=== PATIENT | male | born 1945 | race Caucasian/White ===

== ENCOUNTER → 2018-09-30 | Outpatient (CLI) | payer MEDICARE ==
[2018-09-30 12:44] LABS: Basophils % (A) 0 %; Eosinophils # (A) 0.1 k/uL (0-0.7); Eosinophils % (A) 1 %; HCT 48.2 % (39.0-53.0); HGB 15.6 gm/dL (13.0-17.5); Lymphocytes # (A) 1.3 k/uL (1.0-4.8); Lymphocytes % (A) 17 %; MCHC 32.3 g/dL (31.0-37.0); MCV 92.9 fL (80.0-100.0); Mean Platelet Volume 6.5; Monocytes # (A) 0.4 k/uL (0-1.0); Monocytes % (A) 5 %; Neutrophils # (A) 5.7 k/uL (1.3-7.7); Neutrophils % (A) 75 %; Platelet Count 278 k/uL (150-450); RBC 5.19 m/uL (4.30-5.90); RDW 12.8 % (11.5-15.5); WBC 7.6 k/uL (3.8-10.6)
[2018-09-30 12:53] LABS: Albumin 4.4 g/dL (3.5-5.0); Calcium 9.8 mg/dL (8.4-10.2); Potassium 4.4 mmol/L (3.5-5.1); Total Bilirubin 1.7 mg/dL (0.2-1.3); Total Protein 7.3 g/dL (6.3-8.2)
[2018-09-30 12:57] LABS: INR 1.1 (<1.2); Prothrombin Time 10.4 sec (9.0-12.0)
--- NOTE | 2018-09-30 15:05 | XR ---
EXAMINATION TYPE: XR chest 2V DATE OF EXAM: 09/30/2018 COMPARISON: None HISTORY: Atrioventricular block TECHNIQUE: Frontal and lateral views of the chest are obtained. FINDINGS: There is no focal air space opacity, pleural effusion, or pneumothorax seen. The cardiac silhouette size is within normal limits. 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 Arthropathy noted within the right shoulder. The osseous structures are intact. IMPRESSION: No acute cardiopulmonary process.
== END ==
LOC: RADXRMAIN 11:55
PROVIDERS: ATTEND Internal Medicine Cardiovascular Disease
DX: I44.2 Atrioventricular block, complete (principal); Z51.81 Encounter for therapeutic drug level monitoring; Z79.01 Long term (current) use of anticoagulants
CPT/HCPCS: 36415; 71046; 80053; 85025; 85610

== ENCOUNTER 2018-10-01 06:18 | Day surgery (SDC) | payer MEDICARE ==
[2018-09-30 13:51] VITALS: BMI 28.0
[~2018-10-01 06:18] MED LIST: ceFAZolin 1,000 MG in SODIUM CHLORIDE 0.9% IRRIGATIO 250 ML IRRIGATION ONE; ceFAZolin IN SWFI 2 GM/20 ML SYRINGE IVP ONE
[2018-10-01] MEDS: SODIUM CHLORIDE 0.9% 1,000 ML IV SCH ×2 (06:48→12:53)
[2018-10-01] MEDS ORDERED: LIDOCAINE 1% INJ 10MG/ML (20 ML MDV) ONE ×2 (07:46→07:47)
[2018-10-01] MEDS ORDERED: MIDAZOLAM 2 MG/2 ML VIAL ONE ×2 (07:49→08:26)
[2018-10-01] MEDS ORDERED: fentaNYL (PF) 50 MCG/ML 2 ML AMP ONE ×2 (07:49→08:59)
[2018-10-01] MEDS ORDERED: IOPAMIDOL-300 100ML BTL INJ ONE (07:58)
[2018-10-01] MEDS: fentaNYL (PF) 50 MCG/ML 2 ML AMP IVP ONE ×3 (08:00→09:02)
[2018-10-01] MEDS ORDERED: MIDAZOLAM 2 MG/2 ML VIAL IVP ONE ×2 (08:01→08:31)
[2018-10-01] MEDS ORDERED: ceFAZolin IN SWFI 2 GM/20 ML SYRINGE IVP ONE (08:02)
[2018-10-01] MEDS ORDERED: LIDOCAINE 2% INJ 20 MG/ML SQ ONE (08:02)
[2018-10-01] MEDS ORDERED: LIDOCAINE 1% INJ 10MG/ML (20 ML MDV) SQ ONE (08:31)
[2018-10-01] MEDS ORDERED: fentaNYL (PF) 50 MCG/ML 2 ML AMP IVP ONE (09:03)
[2018-10-01] MEDS ORDERED: BACLOFEN 10 MG TAB PO PRN (09:30)
[2018-10-01] MEDS ORDERED: traMADol 50 MG TAB PO PRN (09:30)
[2018-10-01] MEDS ORDERED: valACYclovir 500 MG TAB PO PRN (09:30)
[2018-10-01] MEDS ORDERED: amLODIPine 5 MG TAB PO STA (12:31)
[2018-10-01] MEDS: ceFAZolin IN SWFI 2 GM/20 ML SYRINGE IVP SCH ×2 (14:19→20:09)
[2018-10-01] MEDS: ACETAMINOPHEN TAB 325 MG TAB PO PRN (15:57)
[2018-10-01] MEDS ORDERED: LISINOPRIL 20 MG TAB PO STA (17:23)
--- NOTE | 2018-10-01 17:27 | P.PCN ---
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 He was found to have second-degree AV block with 2 to one conduction. He was brought in for permanent pacemaker implantation. Patient is advised to have temporary pacemaker before the insertion of the permanent pacemaker. Patient was prepped and draped in the usual fashion. Patient was given prophylactic antibiotics and IV sedation with 2 mg of Versed and 50 of fentanyl. The right groin is infiltrated with lidocaine. Right femoral vein was entered using Seldinger technique. A 6-Latvian sheath was left in place. A 5-Latvian balloontipped pacemaker wire was advancednear the cardiac apex and the right ventricle. Satisfactory threshold were obtained. Pacemaker was set at rate of 35 and output of 3. No immediate complications. Final impression: Successful implantation of temporary pacemaker without any complications.
--- NOTE | 2018-10-01 17:32 | P.PCN ---
Date of Procedure: 10/01/18 Preoperative Diagnosis: Second-degree AV block with 2 to one conduction, episodes of dizziness Postoperative Diagnosis: The same Procedure(s) Performed: Permanent pacemaker implantation, axillary venography Description of Procedure: HISTORY: This is a 72-year-old gentleman who was recently found to have evidence of second-degree heart block with 2 to 1 conduction and episodes of dizziness. Patient is advised to have permanent pacemaker implantation. Patient is going to have temporary pacemaker insertion before the procedure. CONSENT:I have discussed the risks, benefits and alternative therapies for the above-mentioned procedure and for both sedation/analgesia as well as necessary blood product administration, if indicated, as they pertain to this patient. The patient has indicated understanding and acceptance of the risks and procedures discussed. PROCEDURE: Patient was brought to the lab in a fasting state. Patient already had a temporary pacemaker insertion. Patient was prepped and draped in the usual fashion. Patient was given IV sedation with fentanyl and Versed. The skin below the left clavicle was infiltrated with lidocaine. An incision was made parallel to deltopectoral groove was deepened until the pectoral fascia was exposed. A pocket was created by blunt dissection and cautery. Axillary venography was performed to delineate the course of the axillary vein. 2 sticks were performed into extrathoracic portion of the axillary vein and 2 sheaths were advanced over the guidewires and left in subclavian vein. Conscious Sedation: Versed 3 mg Fentanyl 75 g Duration, 90 minutes LEADS: ATRIAL: This is manufactured by [email or web address]. Model number is 5076-52 and the serial number is [id number]. VENTRICULAR: This is manufactured by [employer]. Model number is 5076-58. Serial number is [id number] The ventricular lead is maneuvered l with help of a straight and curved stylets into the left ventricle apical region. Satisfactory position was obtained and threshold measurements were made. The atrial lead was then maneuvered into the right atrial appendage. And thresholds were obtained. THRESHOLDS: ATRIUM:. The minimum patient threshold was 0.8 at pulse width of 0.5. The impedance is 733 P-wave: 3.1 VENTRICLE:. The minimum patient threshold was 0.5 at pulse width of 0.4. Impedance is 95 R-wave:. 10.6. The leads and pulse generator remained in the pocket after it was washed with antibiotics. Pocket was closed in the usual fashion. The fascia was closed with 2-0 Prolene ,the subcutaneous tissue was closed with 3-0 Prolene and the skin was closed with 4-0 Prolene. PROGRAMMING: MODE: DDD RATE: 60 to 1 :30 OUTPUT: Atrium 3.5 V Ventricle: 3.5 V FINAL IMPRESSION: #1. Successful implantation of dual-chamber permanent pacemaker #2 axillary venography: COMPLICATIONS: None PLAN:. We will continue to monitor him on telemetry unit. Prophylactic antibiotics to be continued. Chest x-ray in the morning. If stable patient be discharged home tomorrow.
[2018-10-01 20:19] VITALS: RESP 18
[2018-10-02] MEDS: ceFAZolin IN SWFI 2 GM/20 ML SYRINGE IVP SCH ×2 (02:00→07:39)
[2018-10-02] MEDS: ACETAMINOPHEN TAB 325 MG TAB PO PRN ×2 (02:12→07:37)
--- NOTE | 2018-10-02 07:23 | XR ---
EXAMINATION TYPE: XR chest 2V DATE OF EXAM: 10/02/2018 HISTORY: Lead placement check. REFERENCE: Previous study dated 09/30/2018. FINDINGS: A bipolar pacemaker has been placed via a left subclavian approach. Approximately overlies the right atrium and distally overlies right ventricle. There is no evidence of pneumothorax. The lungs are clear. Pleural space are clear. The heart is not enlarged. IMPRESSION: SATISFACTORY PACEMAKER LEAD PLACEMENT.
[2018-10-02 08:12] VITALS: BP 173/80; PULSE 64; TEMP 97.5
[2018-10-02] MEDS ORDERED: CHOLECALCIFEROL 1,000 UNIT TAB PO SCH (09:00)
[2018-10-02] MEDS ORDERED: FINASTERIDE 5 MG TAB PO SCH (09:00)
[2018-10-02] MEDS ORDERED: LISINOPRIL 20 MG TAB PO SCH (09:00)
[2018-10-02] MEDS ORDERED: amLODIPine 5 MG TAB PO SCH (09:00)
[2018-10-02] MEDS ORDERED: ATORVASTATIN 10 MG TAB PO SCH (09:00)
[2018-10-02] MEDS: SODIUM CHLORIDE 0.9% 1,000 ML IV SCH (09:06)
[2018-10-02] MEDS ORDERED: CEPHALEXIN 500 MG CAP PO SCH (09:15)
--- NOTE | 2018-10-02 09:29 | P.PN ---
Subjective Progress Note Date: 10/02/18 Principal diagnosis: Status post pacemaker implantation Discharge note This is a 72-year-old gentleman who was recently evaluated by ECG because of symptoms of dizziness. He was found to have second-degree AV block with 2 to one conduction. He was brought to the hospital to have a pacemaker implanted. Prior to the permanent pacemaker implantation patient did have temporary pacemaker placed by Dr. Temple. Patient was seen and examined this morning, feels well, no dizziness or lightheadedness. Chest x-ray from this morning did not reveal any evidence of a pneumothorax. Device was interrogated and is functioning appropriately. Blood pressure this morning before medication administration 172/80 his pressure has been running in the 150 range, heart rate in the 60s, 96% on room air. Patient had been given an additional dose of Norvasc yesterday, we will increase his daily dose to 10 mg daily. No laboratory data today. Objective - Vital Signs Vital signs: Vital Signs Temp 97.5 F L 10/02/18 08:00 Pulse 64 10/02/18 08:00 Resp 18 10/02/18 08:00 BP 173/80 10/02/18 08:00 Pulse Ox 96 10/02/18 08:00 Intake & Output 10/01/18 10/02/18 10/02/18 18:59 06:59 18:59 Intake Total 200 Balance 200 Weight 101.605 kg Intake: IV 200 Other: Voiding Method Urinal Urinal # Voids 1 2 - Exam PHYSICAL EXAMINATION: GENERAL: 72-year-old gentleman in no acute distress at the time of my examination HEENT: Head is atraumatic, normocephalic. Pupils equal, round. Sclera anicteric. Conjunctiva are clear. Mucous membranes of the mouth are moist. Neck is supple. There is no elevated jugular venous pressure. No carotid bruit is heard. HEART EXAMINATION: Heart S1, S2 normal. No murmur or gallop heard. CHEST EXAMINATION: Lungs are clear to auscultation and precussion. No chest wall tenderness is noted on palpation or with deep breathing. Site of pacemaker implantation, dressing is dry and intact. ABDOMEN: Soft, nontender. Bowel sounds are heard. No organomegaly noted. EXTREMITIES: 2+ peripheral pulses with no evidence of peripheral edema and no calf tenderness noted. NEUROLOGIC patient is awake, alert and oriented 3 . . Assessment and Plan Plan: Assessment and plan #1 status post implantation of permanent pacemaker for high degree AV block. #2 hypertension #3 hyperlipidemia Plan Patient may be discharged home today, he will have a follow-up appointment with Dr. Temple in the device clinic in one week. We will increase his dose of Norvasc to 10 mg daily. Continue Lipitor, antibiotics for 3 days, Zestril. DNP note has been reviewed, I agree with a documented findings and plan of care. Patient was seen and examined.
--- NOTE | 2018-10-02 10:34 | P.DS ---
Providers Date of admission: 10/01/2018 Expected date of discharge: 10/02/18 Attending physician: Denise Temple Primary care physician: Stated None Hospital Course: This patient is brought in for elective permanent pacemaker implantation for high degree AV block. Please refer to the dictated progress note dictated by Aileen harvey. Patient's blood pressure still running high. I'm going to increase the dose of the amlodipine- Benazepril 520 milligrams twice daily. I will also ask him to resume metoprolol 25 mg by mouth twice a day. He will resume his aspirin. Rest of the medication and prophylactic antibiotics to be continued. Patient is given instructions not to lift, push, pull left arm for the next week. Avoid raising the left arm above the shoulder level. Patient will keep the dressing dry until seen in the office. Will report to was if he develops any fever, swelling or bleeding at the site. Follow-up in one week. Plan - Discharge Summary Discharge Rx Participant: No New Discharge Prescriptions: New Cephalexin [Keflex] 500 mg PO BID #6 cap Metoprolol Tartrate 25 mg PO BID 30 Days #90 tab Continue traMADol HCL [Ultram] 50 mg PO DAILY PRN PRN Reason: Pain valACYclovir [Valtrex] 500 mg PO DAILY PRN PRN Reason: Cold Sores Baclofen [Lioresal] 10 mg PO DAILY PRN PRN Reason: Pain Finasteride [Proscar] 5 mg PO Q48H Atorvastatin Calcium [Lipitor] 20 mg PO Q48H Atorvastatin Calcium [Lipitor] 10 mg PO Q48H amLODIPine BESYLATE/BENAZEPRIL [amLODIPine BESYLATE/BENAZEPRIL 5-20 mg] 1 cap PO DAILY Aspirin [Adult Low Dose Aspirin EC] 81 mg PO DAILY Cholecalciferol (Vitamin D3) [Vitamin D3] 2,000 unit PO DAILY Discharge Medication List Aspirin [Adult Low Dose Aspirin EC] 81 mg PO DAILY 09/30/18 [History] Atorvastatin Calcium [Lipitor] 10 mg PO Q48H 09/30/18 [History] Atorvastatin Calcium [Lipitor] 20 mg PO Q48H 09/30/18 [History] Baclofen [Lioresal] 10 mg PO DAILY PRN 09/30/18 [History] Cholecalciferol (Vitamin D3) [Vitamin D3] 2,000 unit PO DAILY 09/30/18 [History] Finasteride [Proscar] 5 mg PO Q48H 09/30/18 [History] amLODIPine BESYLATE/BENAZEPRIL [amLODIPine BESYLATE/BENAZEPRIL 5-20 mg] 1 cap PO DAILY 09/30/18 [History] traMADol HCL [Ultram] 50 mg PO DAILY PRN 09/30/18 [History] valACYclovir [Valtrex] 500 mg PO DAILY PRN 09/30/18 [History] Cephalexin [Keflex] 500 mg PO BID #6 cap 10/02/18 [Rx] Metoprolol Tartrate 25 mg PO BID 30 Days #90 tab 10/02/18 [Rx] Follow up Appointment(s)/Referral(s): Denise Temple MD [STAFF PHYSICIAN] - 1 Week (device check in office.) Patient Instructions/Handouts: Pacemaker (DC) Activity/Diet/Wound Care/Special Instructions: PATIENT EDUCATION MATERIAL Instructions following a heart rhythm device implant: 1. Keep dressing DRY for ONE week. You may cover the area with Saran or cling wrap, prior to shower. 2. the dressing will be removed after one week in the device clinic at [facility]. 3. avoid raising the left arm about the shoulder level (6 week restriction) 4. avoid arm movements, like backscratching, rubbing the head, or pulling on a cord. (6 week restriction) 5. gentle rang of motion movements of the shoulder, closest to the incision should be performed to avoid a frozen shoulder. (pendulum exercises of the shoulder) 6. the opposite arm may be used freely 7. avoid driving for 7 days 8. avoid activities such as golfing, swimming, weed whacknig, lifting more than 10 pounds weight, bowling, gymnastics and weight training/lifting (6 weeks restrictino) 9. activities such wood chopping with an axe, pull-ups in the gymnasium, power lifting, arc-welding, being close to home induction cooktops will always be a problem. In case of any problems, [phone] Attention: Device Clinic Follow-up in device clinic in 5 days Follow-up with Dr. Temple as scheduled. Increase blood pressure pill to twice a day Resume Metoprolol 25mg twice a day Discharge Disposition: HOME SELF-CARE
[2018-10-02] MEDS ORDERED: METOPROLOL TARTRATE 25 MG TAB PO SCH (10:45)
[2018-10-03] MEDS ORDERED: LISINOPRIL 10 MG TAB PO SCH (09:00)
[2018-10-03] MEDS ORDERED: ATORVASTATIN 20 MG TAB PO SCH (09:00)
== END 2018-10-02 11:39 | disposition home or self-care (01) ==
LOC: CATHEP 06:18 → 1SOBS 09:27 → CATHEP 10-02 11:39
PROVIDERS: ATTEND Internal Medicine Cardiovascular Disease
DX: I44.1 Atrioventricular block, second degree (principal); I44.7 Left bundle-branch block, unspecified; R00.1 Bradycardia, unspecified; I48.91 Unspecified atrial fibrillation; I10 Essential (primary) hypertension; E78.5 Hyperlipidemia, unspecified; E78.00 Pure hypercholesterolemia, unspecified; Z72.0 Tobacco use; Z82.49 Family history of ischemic heart disease and other diseases of the circulatory system; Z79.82 Long term (current) use of aspirin; Z79.899 Other long term (current) drug therapy
CPT/HCPCS: 33208; 33210; 75820; 71046; C1894; C1769 ×2; C1785; C1898; J2001 ×2; J2250; J3010; J0690 ×2; Q9967

== ENCOUNTER 2020-07-31 06:11 | Day surgery (SDC) | payer MEDICARE ==
[2020-07-25 09:44] VITALS: BMI 26.6
[~2020-07-31 06:11] MED LIST changes: +ALPRAZolam 0.25 MG TAB PO PRN; +ALPRAZolam 0.5 MG TAB PO PRN; +NITROGLYCERIN SL TABS 0.4 MG TAB SUBLINGUAL PRN; +SODIUM CHLORIDE 0.9% 1,000 ML in EMPTY BAG 1 BAG IV ONE; -ceFAZolin 1,000 MG in SODIUM CHLORIDE 0.9% IRRIGATIO 250 ML IRRIGATION ONE; -ceFAZolin IN SWFI 2 GM/20 ML SYRINGE IVP ONE
[2020-07-31] MEDS ORDERED: ASPIRIN 325 MG TAB PO ONE (07:00)
[2020-07-31] MEDS ORDERED: SODIUM CHLORIDE 0.9% 1,000 ML IV ONE (07:00)
[2020-07-31] MEDS ORDERED: ATORVASTATIN 80 MG TAB PO ONE (07:00)
[2020-07-31 07:16] VITALS: RESP 16; TEMP 7.8
[2020-07-31] MEDS ORDERED: fentaNYL (PF) 50 MCG/ML 2 ML AMP IVP ONE (07:51)
[2020-07-31] MEDS ORDERED: LIDOCAINE 1% INJ 10MG/ML (20 ML MDV) SQ ONE (07:51)
[2020-07-31] MEDS ORDERED: MIDAZOLAM 2 MG/2 ML VIAL IVP ONE (07:51)
[2020-07-31] MEDS ORDERED: VERAPAMIL SYRINGE (5 MG/10 ML) INTRAARTER ONE (07:54)
[2020-07-31] MEDS: HEPARIN SODIUM 1,000 UN/ML (10ML VL) IV ONE ×2 (07:55→08:19)
[2020-07-31] MEDS ORDERED: IOPAMIDOL-370 125ML BTL INJ ONE ×2 (08:05→08:32)
[2020-07-31] MEDS ORDERED: NITROGLYCERIN 1000MCG/10ML SYRINGE INTRACORON ONE (08:26)
--- NOTE | 2020-07-31 08:36 | P.CARDCATH ---
Date of Procedure: 07/31/20 Description of Procedure: HISTORY: This is a 74-year-old gentleman with history of hypertension and strong family history has been having episodes of nonsustained V. tach. Echocardiogram showed apical hypokinesia. Nuclear stress test also showed a fixed defect oat the apex. Patient is advised to have cardiac catheterization for definitive diagnosis CONSENT:I have discussed the risks, benefits and alternative therapies for the above-mentioned procedure and for both sedation/analgesia as well as necessary blood product administration, if indicated, as they pertain to this patient. The patient has indicated understanding and acceptance of the risks and procedures discussed. PROCEDURE: Patient was brought to the lab in a fasting state. Patient was given some IV sedation. The right wrist is infiltrated with lidocaine and right radial artery was entered using Seldinger technique. A 6-Occitan catheter was left in place and selective coronary arteriography was performed. Patient tolerated the procedure well. TR band was applied for hemostasis. No immediate complications were noted and patient was transferred to [facility] in a stable condition Conscious Sedation: Versed 1mg Fentanyl 50 g Duration 21minutes HEMODYNAMICS: Aortic pressure 120/64. Left ventricular end-diastolic pressure is 8-12. There was no gradient across the aortic valve SELECTIVE CORONARY ARTERIOGRAPHY: LEFT MAIN: Normal length and mild intimal plaque THE LEFT ANTERIOR DESCENDING CORONARY ARTERY: This is a good caliber vessel which is heavily calcified in the proximal and midportion. This appears to be about 50-60% lesion in the mid LAD at the origin of the diagonal branch. The diagonal branch itself has about 90% stenosis THE LEFT CIRCUMFLEX AND IS CORONARY ARTERY:, Moderate caliber vessel with mild disease THE RIGHT CORONARY ARTERY:, Moderate caliber vessel with diffuse mild disease especially in the midportion LEFT VENTRICULOGRAPHY: Not performed FINAL IMPRESSION:. Diffuse coronary disease and calcification of the coronary system. Moderate disease in the LAD with a critical lesion involving the diagonal branch. The right coronary artery has mild disease involving the mid portion PLAN: Administer maximum medical therapy. FFR of the mid LAD PROGNOSIS:. fair
[2020-07-31] MEDS ORDERED: SODIUM CHLORIDE 0.9% 1,000 ML IV SCH (08:45)
[2020-07-31] MEDS ORDERED: RX INFO: IV CONTRAST WAS GIVEN 1 EACH MISC MISCELLANE PRN (09:28)
[2020-07-31 13:14] VITALS: BP 154/71; PULSE 67
== END 2020-07-31 13:20 | disposition home or self-care (01) ==
LOC: CATHCVL 06:11
PROVIDERS: ATTEND Internal Medicine Cardiovascular Disease
DX: I25.10 Atherosclerotic heart disease of native coronary artery without angina pectoris (principal); R93.1 Abnormal findings on diagnostic imaging of heart and coronary circulation; R94.39 Abnormal result of other cardiovascular function study; I47.2 Ventricular tachycardia; I10 Essential (primary) hypertension; E78.00 Pure hypercholesterolemia, unspecified; I42.9 Cardiomyopathy, unspecified; I48.91 Unspecified atrial fibrillation; I45.4 Nonspecific intraventricular block; R00.1 Bradycardia, unspecified; Z95.0 Presence of cardiac pacemaker; Z72.0 Tobacco use; Z79.899 Other long term (current) drug therapy; Z79.82 Long term (current) use of aspirin; Z82.49 Family history of ischemic heart disease and other diseases of the circulatory system
CPT/HCPCS: 93458; C1887; C1769; C1894; J2250; J2001; J3010; J1644; Q9967

== ENCOUNTER → 2021-07-08 | Outpatient (CLI) | payer MEDICARE ==
--- NOTE | 2021-07-08 09:43 | CT ---
EXAMINATION TYPE: CT cervical spine wo con DATE OF EXAM: 07/08/2021 COMPARISON: None HISTORY: 75-year-old male M5 4.2, M4 7.812, R2 0.2, Cervicalgia TECHNIQUE: Contiguous axial scanning of the cervical spine without IV contrast. Coronal and sagittal reconstructions performed. CT DLP: 514.2 mGycm Automated exposure control for dose reduction was used. FINDINGS: Shock Absorber Installer image shows left anterior chest wall pacemaker generator and right ventricular leads. Partially visualized moderate to severe mucosal thickening within the bilateral maxillary sinuses. Moderate atherosclerotic calcifications of the bilateral carotid bifurcations. No craniocervical junction abnormality, predental space widening, or prevertebral soft tissue swellin g. Degenerative change at the C1 dens articulation. Moderate degenerative disc disease throughout with disc space narrowing. Hypertrophic facet and uncovertebral joint arthropathy throughout. Degenerative grade 1 retrolisthesis C3-C4, C5-C6, and C6/C7. Degenerative grade 1 anterolisthesis C7-T1 and T1-T2. Small disc osteophyte complex such as at C3-C4 mildly narrows the spinal canal. Assessment of the spi nal canal at C6/C7 and below is limited due to artifact from patient shoulders. At C2-C3, changes to moderate left neural foraminal stenosis. At C3-C4, moderate to severe bilateral neuroforaminal stenosis. At C4-C5, mild to moderate bilateral neuroforaminal stenosis. At C5-C6, moderate to severe left and mild right neuroforaminal stenosis. At C6/C7, severe right and mild to moderate left neuroforaminal stenosis. No acute fracture of the cervical spine. Some heterotopic ossification along the posterior midline co mpatible with sequela of remote injuries. IMPRESSION: 1. MODERATE MULTILEVEL DEGENERATIVE DISC DISEASE. MODERATE TO ADVANCED MULTILEVEL FACET AND UNCOVERTE BRAL JOINT ARTHROPATHY. 2. 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 3. CHANGES RESULT IN MILD NARROWING OF THE SPINAL CANAL AT C3-C4. 4. VARIABLE MODERATE TO SEVERE BILATERAL NEUROFORAMINAL STENOSES OUTLINED ABOVE.
== END | disposition home or self-care (01) ==
LOC: RADCTMAIN 06:16
PROVIDERS: ATTEND Physical Medicine & Rehabilitation
DX: M48.02 Spinal stenosis, cervical region (principal); M50.30 Other cervical disc degeneration, unspecified cervical region; M47.812 Spondylosis without myelopathy or radiculopathy, cervical region; M99.71 Connective tissue and disc stenosis of intervertebral foramina of cervical region; M43.13 Spondylolisthesis, cervicothoracic region
CPT/HCPCS: 72125

== ENCOUNTER → 2021-07-31 | Outpatient (CLI) | payer MEDICARE ==
--- NOTE | 2021-07-31 11:59 | XR ---
EXAMINATION TYPE: XR chest 2V DATE OF EXAM: 07/31/2021 COMPARISON: 10/02/18 HISTORY: Shortness of breath TECHNIQUE: Frontal and lateral views of the chest are obtained. FINDINGS: Scattered senescent parenchymal changes noted. Hyperinflation compatible with COPD. No evidence for infiltrate. No evidence for atelectasis. Heart size is stable. Mediastinal structures are stable and grossly unremarkable. No evidence for hilar prominence. Degenerative changes dorsal spine. IMPRESSION: 1. No evidence for acute pulmonary disease.
== END | disposition home or self-care (01) ==
LOC: RADXRMAIN 11:37
PROVIDERS: ATTEND Internal Medicine
DX: R06.02 Shortness of breath (principal)
CPT/HCPCS: 71046

== ENCOUNTER → 2022-02-18 | Outpatient (CLI) | payer MEDICARE ==
--- NOTE | 2022-02-18 13:12 | XR ---
EXAMINATION TYPE: XR wrist limited RT DATE OF EXAM: 02/18/2022 CLINICAL HISTORY: History of arthritis with pain. TECHNIQUE: Frontal and lateral images of the right wrist are obtained. COMPARISON: None FINDINGS: There is no acute fracture/dislocation evident in either wrist. Carpal joint spaces are ma intained. Some narrowing at the base of fifth metacarpal with subchondral cystic change. The overlyin g soft tissue appears unremarkable. IMPRESSION: As above.
== END | disposition home or self-care (01) ==
LOC: RADXRMAIN 11:05
PROVIDERS: ATTEND Internal Medicine
DX: M25.831 Other specified joint disorders, right wrist (principal); M85.641 Other cyst of bone, right hand

== ENCOUNTER → 2023-02-11 | Outpatient (CLI) | payer MEDICARE ==
--- NOTE | 2023-02-11 09:17 | CT ---
EXAMINATION TYPE: CT lumbar spine wo con DATE OF EXAM: 02/11/2023 8:20 AM COMPARISON: None. HISTORY: Spondylolysis, Spinal stenosis lumbar CT DLP: 697.8 mGycm Automated exposure control for dose reduction was used. Unenhanced CT of the lumbar spine was performed. Bone and soft tissue window settings are submitted as well as coronal and sagittal reconstructions. There are 5 lumbar-type vertebra. Alignment is satisfactory. Vertebral body heights are maintained. T here is moderate to severe disc space narrowing at L4-L5 level. There is severe disc space narrowing with endplate sclerosis at the L5-S1 level. There is large bridging osteophyte right anterior T11-T12 level. There is additional dmvm-pt-lahttsdz multilevel anterior and lateral spurring. There are small posterior disc herniation mildly effacing anterior thecal sac at T11-T12 level seen b est on sagittal images. Axial images at T12-L1 level appear within normal limits. Axial images at L1-L2 level show posterior spur disc complex effacing the anterior thecal sac along w ith mild to moderate facet arthropathy and ligamentum flavum hypertrophy effacing posterolateral thec al sac. There is suggestion of mild left-sided inferior neural foraminal narrowing. Axial images at L2-L3 level show mild/moderate broad-based disc bulge effacing the anterior thecal sa c along with moderate facet arthropathy and ligamentum flavum hypertrophy effacing the posterolateral thecal sac. There is suggestion of mild left-sided neural foraminal narrowing. Axial images at L3-L4 level moderate to severe facet arthropathy and ligamentum flavum hypertrophy ef facing the posterolateral thecal sac. There is broad-based posterior disc protrusion effacing anterio r thecal sac. There is iytt-eg-hrutbxjr bilateral neural foraminal narrowing. Axial images at L4-L5 level show advanced facet arthropathy bilaterally. There is broad-based posteri or disc protrusion. There is mild effacement of the anterior thecal sac. There is eqmx-rp-jyhdpwod bi lateral neural foraminal narrowing. Axial images at L5-S1 level shows moderate to advanced facet arthropathy bilaterally. There is some e ffacement of the right lateral thecal sac. There is some posterior spurring at level of the disc spac e. There is at least moderate bilateral neural foraminal narrowing. Partial visualization of pacemaker leads in the right heart. There is 1.1 cm round low-density lesion posterior right kidney axial image 34 favoring benign thin-walled cyst and exophytic measuring 2.0 c m thin-walled cyst lower pole of right kidney coronal image 37. There is mild calcified plaque of the aorta extending into branch vessels. Moderate colonic fecal prominence near the hepatic flexure is n oted. IMPRESSION: Multilevel degenerative changes in the lumbar spine as detailed above.
== END | disposition home or self-care (01) ==
LOC: RADCTMAIN 08:03
PROVIDERS: ATTEND Physical Medicine & Rehabilitation
DX: M43.06 Spondylolysis, lumbar region (principal); M48.062 Spinal stenosis, lumbar region with neurogenic claudication; M47.816 Spondylosis without myelopathy or radiculopathy, lumbar region; M48.061 Spinal stenosis, lumbar region without neurogenic claudication; M51.24 Other intervertebral disc displacement, thoracic region
CPT/HCPCS: 72131

== ENCOUNTER 2024-07-29 09:57 | Day surgery (SDC) | payer MEDICARE ==
[2024-07-28 08:55] VITALS: BMI 23.7
[~2024-07-29 09:57] MED LIST changes: -ALPRAZolam 0.5 MG TAB PO PRN; +HEPARIN SODIUM,PORCINE (1 ML) 2,500 UNIT in SODIUM CHLORIDE 0.9% 250 ML IRRIGATION PRN; +HEPARIN SODIUM,PORCINE 10,000 UNIT in SODIUM CHLORIDE 0.9% 1,000 ML IRRIGATION PRN; -SODIUM CHLORIDE 0.9% 1,000 ML in EMPTY BAG 1 BAG IV ONE
[2024-07-29] MEDS: IV FLUID CONTINUATION 1,000 ML IV ONE (10:27)
[2024-07-29] MEDS: SODIUM CHLORIDE 0.9% 1,000 ML in EMPTY BAG 1 BAG IV SCH (10:27)
[2024-07-29] MEDS: ASPIRIN 325 MG TAB PO ONE (10:27)
[2024-07-29] MEDS: ACETAMINOPHEN TAB 500 MG TAB PO PRN (10:30)
[2024-07-29 10:34] VITALS: RESP 16; TEMP 97.8
[2024-07-29] MEDS: ALPRAZolam 0.5 MG TAB PO PRN (12:24)
[2024-07-29] MEDS: fentaNYL (PF) 50 MCG/1 ML VIAL IVP ONE (13:12)
[2024-07-29] MEDS: MIDAZOLAM 2 MG/2 ML VIAL IVP ONE (13:12)
[2024-07-29] MEDS: LIDOCAINE 1% INJ 10MG/ML (20 ML MDV) SQ ONE (13:13)
[2024-07-29] MEDS: VERAPAMIL SYRINGE (5 MG/10 ML) INTRAARTER ONE (13:15)
[2024-07-29] MEDS: HEPARIN SODIUM 1,000 UN/ML (10ML VL) IV ONE (13:16)
[2024-07-29] MEDS: IOPAMIDOL-370 200ML BTL INJ ONE (13:29)
[2024-07-29] MEDS ORDERED: RX INFO: IV CONTRAST WAS GIVEN 1 EACH MISC MISCELLANE PRN (15:30)
[2024-07-29] MEDS ORDERED: SODIUM CHLORIDE 0.9% 1,000 ML IV SCH (15:30)
[2024-07-29 17:08] VITALS: BP 126/66; PULSE 61
--- NOTE | 2024-07-29 17:18 | P.CARDCATH ---
Description of Procedure: PROCEDURES PERFORMED: Left heart catheterization, bilateral coronary angiography, ultrasound guided arterial access INDICATION:abnormal stress test with anterior ischemia with increasing dyspnea, chest pain, exercise intolerance CONSENT:I have discussed the risks, benefits and alternative therapies for the above-mentioned procedure and for both sedation/analgesia as well as necessary blood product administration, if indicated, as they pertain to this patient. The patient has indicated understanding and acceptance of the risks and procedures discussed. PROCEDURE: After the risks, benefits and alternatives of the above mentioned procedure explained in detail with the patient, informed consent was obtained. Patient was taken to the catheterization lab and prepped and draped in usual fashion. Ultrasound guidance was used to assess for arterial access. 1% lidocaine was used to anesthetize the right radial artery. A 6-Turkmen sheath was placed in the right radial artery using modified Seldinger technique and ultrasound guidance. Left coronary angiography was performed with a 5-Turkmen JL 3.5 catheter and right coronary angiography was performed with a 5-Turkmen AR2 catheter in various views. A 5-Turkmen AR2 catheter was inserted into the left ventricle and pressure measurements were obtained. The right radial sheath was removed and a TR band was placed with hemostasis achieved. The patient tolerated the procedure well. Patient was transported back to the post catheterization holding area in stable condition. Conscious Sedation: Patient was monitored under the direct supervision of myself for conscious sedation using Versed and fentanyl for a total duration of 15 minutes HEMODYNAMICS: aorta: 141/78 LV: 140/5, LVEDP 15 SELECTIVE CORONARY ARTERIOGRAPHY: LEFT MAIN: The left main is a large caliber vessel which trifurcates into the LAD, ramus and circumflex. There is no significant stenosis. LEFT ANTERIOR DESCENDING CORONARY ARTERY: LAD is a large caliber vessel which wraps around to the apex. There is a proximal LAD 30-40% stenosis and heavily calcified approximately the mid LAD with more focal 60% mid LAD stenosis and diagonal 90% stenosis RAMUS INTERMEDIUS: the ramus is a moderate caliber vessel with no significant stenosis LEFT CIRCUMFLEX CORONARY ARTERY: Left circumflex is a moderate caliber vessel with mild luminal irregularities. RIGHT CORONARY ARTERY: The right coronary artery is a large caliber vessel which gives off a PDA and PLV branch and is the dominant vessel. There is a mid RCA 50-60% stenosis. FINAL IMPRESSION: 1. CAD as described above including mid LAD 60% stenosis, mid RCA 50-60% stenosis, diagonal 1 90% stenosis 2. Normal left sided filling pressures PLAN: 1. Aggressive risk factor modification per most recent ACC/AHA guidelines. 2. Patient with symptoms which may be related to angina. His angiograms overall appear relatively unchanged from 2020. Anterior ischemia may be related to diagonal branch or to LAD. Diagonal branches small caliber and would not recommend intervention. LAD is heavily calcified with likely difficult stenting. Would trial medical therapy and then consider further assessment of still having symptoms. FFR machine not currently available. Would consider FFR before any intervention.
[2024-07-29] MEDS ORDERED: APIXABAN 5 MG TAB PO SCH (21:00)
[2024-07-30] MEDS ORDERED: ISOSORBIDE MONONITRATE ER 30 MG TAB.ER.24H PO SCH (09:00)
== END 2024-07-29 16:50 | disposition home or self-care (01) ==
LOC: CATHCVL 09:57
PROVIDERS: ATTEND Internal Medicine
DX: I25.10 Atherosclerotic heart disease of native coronary artery without angina pectoris
CPT/HCPCS: 93458

== ENCOUNTER 2024-08-26 07:41 | Day surgery (SDC) | payer MEDICARE ==
[2024-08-26] MEDS: diazePAM 5 MG TAB PO PRN (08:38)
[2024-08-26 09:10] VITALS: TEMP 97.6
--- NOTE | 2024-08-26 10:01 | FL ---
EXAMINATION TYPE: FL myelogram lumbosacral DATE OF EXAM: 08/26/2024 COMPARISON: NONE HISTORY: Back pain CT DLP: Not providedmGycm The procedure was explained to the patient. The risks, complications, benefits, and alternatives wer e discussed and any questions were answered. Informed consent was obtained. Patient was placed find ing on the fluoroscopic table and prepped and draped in the usual sterile fashion. All elements of maximal barrier and sterile technique utilized. One image submitted. 1.02 minutes of fluoroscopy time. The DAP not provided. Utilizing CT guidance, an 21-gauge G needle access into the thecal sac was achieved at the L3-L4 leve l. Approximately 6 cc of nonionic contrast instilled into the thecal sac. Immediate imaging demonstra jose the placement of the needle and contrast. Patient was to be taken to CT scan for postmyelogram CT . The patient was stable throughout the procedure and remained stable upon discharge. IMPRESSION: 1. Successful fluoroscopy guided lumbar myelogram. [facility], , 08/26/2024 9:57 AM
[2024-08-26 10:11] VITALS: RESP 16
[2024-08-26 13:09] VITALS: BP 138/62; PULSE 61
--- NOTE | 2024-08-29 08:18 | CT ---
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 CONTRAST: Examination is performed following lumbar myelogram. Enhanced CT of the lumbar spine was performed. Bone and soft tissue window settings are submitted as well as coronal and sagittal reconstructions. L1-L2: Normal disc space height. No disc herniation protrusion or central stenosis. No facet joint arthropathy. No evidence for foraminal encroachment. L2-L3: Mild degenerative disc space narrowing with posterior disc bulge. Hypertrophy ligamentum flavu m and facet joint arthropathy resulting in mild central stenosis. Mild bilateral foraminal encroachme nt. No evidence for disc herniation. L3-L4: Mild degenerative disc space narrowing with posterior disc bulge. Hypertrophy ligamentum flavu m and facet joint arthropathy resulting in moderate central stenosis. Mild bilateral foraminal encroa chment. No evidence for disc herniation. L4-L5: Severe degenerative disc space narrowing with mild posterior disc bulge. Retrolisthesis L4 and L5 measuring 3 mm. Mild effacement ventral thecal sac without central stenosis or lateral recess sandra nosis. No foraminal encroachment. L5-S1: Severe degenerative disc space narrowing and vacuum disc. Posterior disc bulge with mild effac ement ventral thecal sac. No evidence for central stenosis or lateral recess stenosis. Mild bilateral foraminal encroachment. IMPRESSION: Degenerative Disc disease as outlined above. Central stenosis at L2-3 and L3-4. [facility], , 08/29/2024 8:16 AM
== END 2024-08-26 13:30 | disposition home or self-care (01) ==
LOC: RADPROMAIN 07:41
PROVIDERS: ATTEND Orthopaedic Surgery
DX: M47.816 Spondylosis without myelopathy or radiculopathy, lumbar region (principal)
CPT/HCPCS: 62304; 72132

== ENCOUNTER 2025-01-23 07:22 | Inpatient (IN) | payer MEDICARE ==
[2025-01-18 10:07] VITALS: BMI 24.0
--- NOTE | 2025-01-22 15:55 | P.HPOR ---
History of Present Illness H&P Date: 01/16/25 .D:Date: 01/16/25 : 04:22pm .T:Title: *PRE-OP H1 [facility] [address] [place] [address]| PROVIDER: CURT MORENO DO CLINICAL SUMMARY: *Mr. Sorto is a 79-year-old male who presents for pre-operative evaluation preceding REVISION L2 TO PELVIS DECOMPRESSION WITH POSTEROLATERAL AND INTERBODY FUSION. Patient reports progressive lumbar pain (VAS 3/10) with associated left lower extremity radiculopathy, weakness, and neurogenic claudication symptoms. Conservative management including physical therapy, home exercise program, and pharmacological interventions ([place]and[place], NSAIDs, muscle relaxants) has failed to provide adequate relief. Imaging studies demonstrate severe spondylosis L2-S1 with significant stenosis, Grade 1 spondylolisthesis at L3-4, and degenerative changes. Patient has history of prior lumbar surgery in 1979. After thorough discussion of surgical risks, benefits, and alternatives, patient has elected to proceed with surgical intervention. Pre-operative clearance has been requested from PCP. Patient demonstrates understanding of proposed procedure and post- operative expectations. MEDICAL NECESSITY: Mr. Sorto demonstrates clear medical necessity for surgical intervention based on several pittman factors: 1) Progressive neurological deficits including left lower extremity weakness (dorsiflexion and plantarflexion 4/5) and radiculopathy, 2) Severe spinal stenosis from L2-S1 confirmed on both X-ray and CT myelogram with Grade 1 spondylolisthesis at L3-4 causing significant central and foraminal stenosis, 3) Neurogenic claudication symptoms significantly impacting activities of daily living, 4) Failure of extensive conservative management including physical therapy, home exercise program, and multiple medication trials (NSAIDs, muscle relaxants, narcotic pain medication), and 5) Progressive debility over the past 4 months despite appropriate non-operative care. The severity and progression of symptoms, combined with corresponding imaging findings and failed conservative management, clearly indicate the need for surgical intervention. SURGICAL RATIONALE: The proposed REVISION L2 TO PELVIS DECOMPRESSION WITH POSTEROLATERAL AND INTERBODY FUSION is the most appropriate surgical intervention for this patient given: 1) Multi-level severe stenosis requiring extensive decompression, 2) Presence of instability at L3-4 with Grade 1 spondylolisthesis requiring stabilization, 3) Severe degenerative changes with collapse of disc height and facet arthrosis throughout L2-S1 necessitating fusion, 4) Prior lumbar surgery from 1979 requiring revision approach, and 5) The need to restore proper lumbar lordosis (currently 34 degrees) and address sagittal balance. The extensive nature of the pathology and the presence of instability make decompression alone insufficient, while the multi-level involvement and previous surgery necessitate the proposed construct length to achieve adequate stabilization and prevent adjacent segment degeneration. DEMOGRAPHICS: Age: 79 year Height: 6'3" Weight: 192 lbs BP:140/80 BMI: 24.00 kg/m2 Occupation: *Retired CC: *lumbar pain VAS: * 3 HISTORY: Mr. Sorto presents to the office today, 01/16/25, for *a pre-operative appointment preceding his REVISION L2 TO PELVIS DECOMPRESSION WITH POSTEROLA TERAL AND INTERBODY FUSION.Since his last visit he has had increasing pain across his back, LLE pain to his foot and debility with weakness in his LLE and numbness/tingling that is refractory to conservative measures. He has been doing PT, HEP and taking Logandale for pain. He tried Motrin and Aleve but this did not help him. He states pain is worse at night and with increasing activity. He states some relief with laying flat, but otherwise he is very painful most of the time. He has a hx of low back surgery in 1979 and after that surgery has been relatively stable until about 1-2 years ago when he started to progress quite rapidly. States the pain is now sharp and constant for the pats 4 months and the leg pain is the same intensity and time. Denies any trauma to the area. Denies any other sx. H8 Patient denies any f/c/sob/cp, perineal numbness or tingling, bowel, or bladder incontinence/retention. Patient is ambulatory under his own power. P1 The patients past social, medical, family, surgical history, as well as review of systems, have been reviewed. Please refer to the History and Physical form that has been scanned into our electronic medical record system. R0 16 points review of systems completed and as stated in HPI, all other systems reviewed are negative. PAST TREATMENTS: PAST IMAGING: YES -XR and CT myelo of Lumbar spine TRAUMA RELATED: NO - WORK RELATED: NO - PT IN LAST 6 MONTHS: YES -most recent 3 months ago. Pt stopped as it was making him worse and he was doing his own excercises at home. PHYSICIAN DIRECTED HOME EXERCISE PROGRAM: YES -At home ACTIVITY MODIFICATION: YES -Limiting BLTPP to less than 30 lbs -Limiting his activity which has been more so in the past 4 months and he is normally very active so this is frustrating him. MEDICATIONS: YES -Logandale, aleve, motrin, prednisone, flexeril, gabapentin ALTERNATIVE INTERVENTIONS (CHIROPRACTIC, ACCUPUNCTURE, MASSAGE, RICE): YES -Massage BRACING: NO - INJECTIONS (BENJY, TF, RFA): YES -previous injections did not help MEDICAL HISTORY: Past Medical History: REVIEWED STATED IN CHART Past Surgical History: REVIEWED STATED IN CHART Social History: REVIEWED STATED IN CHART SMOKING: Never smoker ETOH: None SUBSTANCES: None Family History: REVIEWED STATED IN CHART P1 Current Medications: Rx: aspirin 81 mg chewable tablet Ref: 0 Instructions: chew 1 tablet (81 mg) by oral route once daily Rx: atorvastatin 40 mg tablet Ref: 0 Instructions: take 1 tablet (40 mg) by oral route once daily Rx: baclofen 10 mg tablet Ref: 0 Instructions: take 1 tablet (10 mg) by oral route 3 times per day Rx: metFORMIN 500 mg tablet Ref: 0 Instructions: take 1 tablet (500 mg) by oral route 2 times per day with morning andevening meals Rx: metoprolol tartrate 25 mg tablet Ref: 0 Instructions: take 1 tablet (25 mg) by oral route 2 times per day Rx: Multi Vitamin Ref: 0 Rx: nitroglycerin 0.4 mg sublingual tablet Ref: 0 Instructions: place 1 tablet (0.4 mg) by buccal route 5-10 minutes prior to activities which might precipitate an attack Rx: valACYclovir 500 mg tablet Ref: 0 Instructions: take 1 tablet (500 mg) by oral route 2 times per day Rx: cyclobenzaprine 5 mg tablet Ref: 0 Instructions: take 1 tablet (5 mg) by oral route 3 times per day as needed for muscle spasm Rx: amLODIPine 5 mg tablet Ref: 0 Instructions: take 1 tablet (5 mg) by oral route once daily Rx: apixaban 5 mg tablet Ref: 0 Instructions: take 1 tablet (5 mg) by oral route 2 times per day Rx: HYDROcodone 5 mg-acetaminophen 325 mg tablet Ref: 0 Instructions: take 1 tablet by oral route every 6 hours as needed for pain P1 PHYSICAL EXAM: General: AOX3, NAD, Well hydrate, well nourished HEENT: No lumps or masses Extremities: No color changes, no pooling INTEGUMENT: Appearance: Normal color and turgor Surgical Incisions: lumbar well healed Hairy Patches: ABSENT Dorsal Skin Dimples: Normal [employer] spots: ABSENT PALPATION: TTP Midline: YES Paracervical: NO Parathoracic: NO Paralumbar: YES SIJ TESTING: TESTED * [place] Finger: POS LEFT * FABER4: POS LEFT * Compression: POS LEFT * Distraction: NEG * Thigh thrust: NEG * Hip thrust: POS LEFT POSTURAL BALANCE: Coronal: BALANCED Sagittal: BALANCED Shoulder height: LEVEL Pelvic Girdle: LEVEL ROM AND APPEARANCE: Neck: UNRESTRICTED Lumbar: RESTRICTED Shoulders: Symmetrical Hips: Symmetrical Knees: Symmetrical Hands: Symmetrical Feet: Symmetrical VASCULAR STATUS: PALPABLE PULSES B/L UE AND LE 2/4 RAD/ULNAR/DP/PT Edema: NONE NEUROLOGICAL EXAMINATION: Mental Status: Awake, alert, fully oriented with normal attention, concentration, and memory. Fluent appropriate speech. CRANIAL NERVES: I: Olfactory not assessed. II: Visual acuity normal, no visual field deficit noted with confrontation. III, IV: Normal pupillary reflexes & intact extraocular movements without nystagmus. V, : Intact symmetrical facial sensation. VII: Intact symmetrical facial motor movement: Hearing intact. IX, X: Intact gag, swallow, & normal voice. XI: Sternocleidomastoid, trapezius function intact. XII: Tongue midline with normal movements. TENSIONING: * L'HERMITTE'S SIG:NEG SPURLUNG'S SIGN:NEG CUBITAL TUNNEL COMPRESSION:NEG TINELS AT WRIST:NEG STRAIGH LEG RAISE:POS LEFT CONTRALATERAL STRAIGHT LEG RAISE: NEG MOTOR EXAM (0-5/5, NT) Muscle appearance: Symmetrical, without signs of atrophy or dystrophy UPPER EXTREMITY RIGHT LEFT Shoulder Abduction 5 5 Biceps 5 5 Triceps 5 5 Wrist Extension 5 5 Hand Intrinsics 5 5 Director Music 5 5 LOWER EXTREMITY RIGHT LEFT Hip Flexion 5 5 Knee Extension 5 5 Knee Flexion 5 5 Dorsiflexion 5 4 Plantarflexion 5 4 EHL 4 4 FHL 4 4 REFLEXES (0-4/2, NT): RIGHT LEFT Bicep 2 2 Brachioradialis 2 2 Triceps 2 2 Patellar 1 1 Achilles 1 2 PATHOLOGICAL REFLEXES: RIGHT LEFT LALA'S ABSENT ABSENT CLONUS ABSENT ABSENT BABINSKI ABSENT ABSENT RECTAL TONE: INTACT/NT SENSATION (0-4, NT): Sensation intact to LT and Pain * C5-T1 distribution BUE * L2-S2 distribution BLE *Exceptions below* DERMATOMAL DEFICIT/RADICULAR PATTERN: L2-S1 b/l GAIT AND FUNCTIONAL EVALUATION: AMBULATORY AID Cane ROMBERG'S TEST INTACT HAND AND FINGER DEXTERITY INTACT YES DYSDIADOCHOKINESIA EXAM NEG B/L YES TOE/HEEL WALK INTACT WITH GOOD BALANCE NO SQUAT AND RISE W/O ASSISTANCE TO 60 DEG KNEE FLEXION NO SINGLE LEG STANCE NOT INTACT TRENDELENBURG NT IMAGING: XRAY Date: 08/11/24 Location: [facility] Region: LUMAR Views: AP/LAT/FLEX/EXT/OB/PELVIS IMAGES ARE REVIEWED WITH THE PATIENT IN OFFICE AND DEMONSTRATE THE FOLLOWING: FINDINGS: Spondylosis that is severe with severe degenerative collopase of disc height, spaces, facet height and foraminal height b/l. There is severe facet arthrosis noted wwith degenerative osteophyhte formations as well as disc height loss. L3-4 is relatively maintained compared to other levels, however this lends to instability at this level then with translation on flexion and extension films and further decrease in the LL which is around 34 deg. PI around 56 deg. No fractures noted. No lesions noted. CT MYELOGRAM Date: 08/26/24 Location: [facility] Region: LUMBAR Contrast: Y IMAGES ARE REVIEWED WITH THE PATIENT IN OFFICE AND DEMONSTRATE THE FOLLOWING: FINDINGS: This echos the xrays with more detail. There is severe spondylosis with disc collapse, facet arthrosis and ligamental overgrowth from L2-S1 with severe stenosis anterior and posterior L2-3, L3-4 L4-5. At L2-3 there is large degenerative disc herniation causing b/l foraminal stenosis and central as well as LR steonsis. At L3-4, suspected instability confirmed with severe stenosis, pincer type lesion with translation causing severe central and foraminal stenosis. Facet arthropathy si severe with degenerative facet cyst formations causing central and foraminal stensosis. L4-S1 shows degenerative collapse, severe, with again severe facet arthrosis, stenosis and NF height loss. No fractures noted. No lesions noted. IMPRESSION: It was my pleasure to have seen and examined Evgeny. I reviewed the patient's clinical syndrome, physical findings, and imaging studies during the appointment today. It is my impression that the patient has a diagnosis of. 1.L2-S1 SEVERE SPONDYLOSIS WITH SEVER STENOSIS 2.NEUROGENIC CLAUDICATION 3.LLE RADICULOPATHY WITH WEAKNESS 4. LOW BACK PAIN 5. GRADE 1 SPONDYLOLISTHESIS WITH STENOSIS AND NC L3-4 PLAN: DISCUSSION: -I have discussed with the patient his clinical signs and sx as well as imaging. Options have been discussed including but not limited to medications, PT, HEP, injections, and surgical options. The patient feels he is not getting any better with conservative options and feels he needs to have this fixed as he is just getting worse and not better. SURGICAL RECOMMENDATION -REVISION L2 TO PELVIS DECOMPRESSION WITH POSTEROLATERAL AND INTERBODY FUSION Surgical Procedure Risk Review Evgeny Sorto is a 78 year old male presenting for evaluation of sudden onset of LOW BACK PAIN, LE WEAKNESS, PROGRESSIVE DEBILITY AND WEAKNSS WITH LE PAIN. It was my pleasure to have seen and examined Mr. Sorto. In our visit today we have had a chance to go over subjective complaints, physical examination findings and treatments, including the natural course history without intervention and various interventional options. The imaging demonstrates SP[ONDYLOSIS WITH STENOSIS SEVERE FROM L2 TO S1 WITH INSTABILITY IN L3-4 WELL SEVERE DEGENERATIVE CHANGES WITH COLLAPSE OF LUMBAR SPINE . On physical exam, Mr. Sorto demonstrates PROGRESSIVE DEBILITY WITH LLE PAIN, WEAKNESS, LOW BACK PAIN, INABILTIY TO PERFORM ADLS APPROPRIATELY WHEN HE NORMALLY CAN WELL NEUROGENIC CLAUDICATION . I explained to the patient that as his condition progresses it could cause PROGRESSIVE CHANGES, PERMANENT CHANGES, INCREASING DEBILITY AND NATURAL PROGRESSION . At this time, based on the patients imaging and physical exam, I recommend surgery in the form or a: REVISION L2 TO PELVIS DECOMPRESSION WITH POSTEROLATERAL AND INTERBODY FUSION . I discussed the risk and benefits of this procedure at length with Mr. Sorto. The patient agreed to consider pursuing the procedure mentioned above. Plan: 1. REVISION L2 TO PELVIS DECOMPRESSION WITH POSTEROLATERAL AND INTERBODY FUSION 2. Follow up with PCP for surgical clearance 3. Review of surgical risks and benefits as well as an educational packet on the proposed surgical procedure. Risks: All surgical procedures come with inherent risks, including those related to positioning, anesthesia, intraoperative findings, and postoperative complications. It is important to understand that surgery does not come with any guarantee of a successful outcome as complications and adverse events are always possible. The patient was given a handout in office today discussing the surgical procedure and risks associated with the intervention, both of which were discussed with the patient. These risks include but are not limited to the following: ? Experiencing same, different or even worse symptoms in back, neck, arms, or legs compared to before surgery. ? Requiring further surgery or other forms of treatment presently or at some time in the future at same or other levels of the intended spine surgery. ? On an extreme but fortunately relatively rare basis severe complication such as blindness, stroke, heart attack, temporary and/or permanent nerve injury, paralysis, coma, or may occur, sometimes without known explanation. ? Surgical complications may include but are not limited to risk of infection, fluid accumulation in the surgical dissection site, including a seroma or hematoma, that requires additional surgery, wound drainage, bleeding, new numbness or weakness, vision changes/loss, spinal fluid leakage, non-healing and/or infected incision, headaches, difficulty or inability to swallow, hoarseness, hemopneumothorax, pneumothorax, impotence, retrograde ejaculation, vaginal dryness; injury to nerves, spinal cord, blood vessels, lymphatics or other vital organs (i.e., bowel injury, injury to the great vessels); heterotopic bone formation; complications related to the hardware such as screws, rods, cages including misplaced hardware, device failure, instrumentation at the wrong spine level, hardware fracture/breakage, or hardware loosening; vertebral failure of the spinal column above or below the newly placed hardware; retained surgical instrumentations or devices and the need for further surgery. ? Medical risks of the planned spine surgery include but are not limited to generalized Infections to the whole body or local areas outside of the surgical site (sepsis), heart attack, bleeding, anaphylaxis, meningitis, seizure, epilepsy, hearing loss, burn boo, laceration of the head or other areas of the body, bruising, hypersensitivity of the skin, bladder over distension; allergic reaction; shoulder injury related to positioning; fat, blood and air clots to other areas of the body like heart, lungs, brain; failure of internal organs such as lungs, kidneys, liver and excessive bleeding. If blood transfusions are necessary, note that transfusions may cause intolerance reactions such as anaphylaxis or other complex reactions. Despite best efforts, the results of spine surgery might not heal in terms of bone, soft tissues such as skin, fascia, ligaments, and joints. Additionally, in order to achieve best possible results, spine surgery may be carried out beyond the initially planned levels and involve decompression, fusion including insertion of hardware at levels other than the original intended area of surgical interest change some portions of the procedure in order to ensure the best possible outcomes. With spine surgery and spinal fusion, there are different off label uses of instrumentation (devices, implants and hardware) as well as biological substances (bone morphogenic proteins, demineralized bone matrix) as well as using extra bone from allograft sources (i.e. cadaver bone) or autograft (iliac crest bone, ribs, or the spine itself). The patient has been given information about these practices and their inherent risks and benefits. [facility] Physician Assistants are medically trained surgical providers who function in the outpatient, inpatient, and operating room setting under the direct supervision of the attending surgeon.They assist in the operating room with direct supervision of the attending surgeons. The patient has had a chance to review all the listed information, has been given print outs detailing this information, and has had all his/her questions answered to their satisfaction. It was my pleasure to have seen and examined Mr. Sorto. In our visit today we have had a chance to go over my understanding of our patient's current condition, the natural course history without intervention and various interventional options. Questions were invited and answered, and the patient wishes to proceed as outlined above. I have seen and examined the patient for 25 minutes and we have spent more than 50% of the time in repeat and detailed counseling about the patient's condition, its natural course history with out and as much as can be predicted with surgery and re-review of various surgical treatment options. In conclusion,Mr. Sorto and his spouse/partner requested we proceed with the above suggested surgery and are willing to accept risks and limitations of the suggested surgery as nature of the disease process and our best attempts at treatment for the condition. THERAPIES -CONT ABLE -Cont. with home exercises and home PT exercises as able -Cont. with Heat/Ice as warranted -Cont. with supplementation Vit D, Vit C, Ca2+, High protein diet -OK for massage or other alternative treatment modalities as able. If it exacerbates your sx do not continue ACTIVITY -LIMIT -NO LIFTING BENDING TWISTING PUSHING PULLING GREATER THAN -10 LBS -Recommend walking up to 30 min 2x daily on a flat easy surface with good support. MEDICATIONS -CONT CURRENT REGIMENT -Take as directed -Cont. home medications as directed by your PCP. Check with your PCP for any medication interactions or issues if needed. IMAGING -NO NEW INJECTIONS -NA FOLLOW UP: *POST-OP PLAN AT NEXT VISIT: * RECHECK PATIENT EDUCATION: Medications Reviewed: YES In our visit today Mr. Sorto and I have had a chance to go over my under standing of the patient's current condition, the natural course history without intervention and various interventional options. Questions were invited and answered, and the patient wishes to proceed as outlined above. I will be sure to keep you updated after Mr. Sorto returns here for further follow-up. Thank you again for your referral. Please do not hesitate to contact me if you have any further questions. Signed and authenticated by: Curt [facility] [address] [place] [phone] . This message is confidential, intended only for the named recipient(s) and may contain information that is privileged or exempt from disclosure under applicable law. If you are not the intended recipient(s), you are notified that the dissemination, distribution or copying of this information is prohibited. If you received this message in error, please notify the sender then delete this message. Past Medical History Past Medical History: Atrial Fibrillation, Coronary Artery Disease (CAD), Cancer, Hyperlipidemia, Hypertension, Osteoarthritis (OA), Prostate Disorder Additional Past Medical History / Comment(s): chronic back pain-lumbar disc compression, neck arthritis, basal cell carninoma on nose-removed 2023, borderline diabetes A1c=5.9, hx of AV block, carotid bruit History of Any Multi-Drug Resistant Organisms: None Reported Past Surgical History: Back Surgery, Orthopedic Surgery, Pacemaker Additional Past Surgical History / Comment(s): B/L knee arthroscopies, shoulder, R elbow, B/L hands trigger finger surg, [employer] Pacemaker left chest, Heart cath 6 months ago-no intervention. Past Anesthesia/Blood Transfusion Reactions: No Reported Reaction Additional Past Anesthesia/Blood Transfusion Reaction / Comment(s): no hx blood transfusion Type of Cardiac Device: Permanent Pacemaker Device Placement Date:: 2017 Smoking Status: Former smoker - Past Family History Father Family Medical History: Cancer Additional Family Medical History / Comment(s): colon and skin CA Sister(s) Family Medical History: Cancer Additional Family Medical History / Comment(s): skin CA Mother Family Medical History: Diabetes Mellitus Brother(s) Family Medical History: Coronary Artery Disease (CAD) Medications and Allergies Home Medications Medication Instructions Recorded Confirmed Type Aspirin [Adult Low Dose Aspirin EC] 81 mg PO DAILY 09/30/18 01/18/25 History Atorvastatin Calcium [Lipitor] 40 mg PO DAILY 09/30/18 01/18/25 History Baclofen [Lioresal] 10 mg PO DAILY PRN 09/30/18 01/18/25 History valACYclovir HCL [Valtrex] 500 mg PO DAILY PRN 09/30/18 01/18/25 History Metoprolol Tartrate 25 mg PO BID 30 Days #90 tab 10/02/18 01/18/25 Rx Multivitamins, Thera [Multivitamin 1 tab PO DAILY 07/25/20 01/18/25 History (formulary)] Nitroglycerin Sl Tabs [Nitrostat] 0.4 mg SUBLINGUAL Q5M PRN #25 tab 07/31/20 01/18/25 Rx Ascorbic Acid [Vitamin C] 500 mg PO DAILY 07/28/24 01/18/25 History Tamsulosin HCl [Flomax] 0.4 mg PO BID 07/28/24 01/18/25 History Zinc Gluconate [Zinc] 50 mg PO DAILY 07/28/24 01/18/25 History Apixaban [Eliquis] 5 mg PO BID 07/29/24 01/18/25 History Acetaminophen Tab [Tylenol Tab] 1,000 mg PO DAILY PRN 08/24/24 01/18/25 History Cyclobenzaprine [Flexeril] 5 mg PO DAILY PRN 08/24/24 01/18/25 History HYDROcodone/APAP 5-325MG [Logandale 1 tab PO Q6HR PRN 01/18/25 01/18/25 History 5-325] amLODIPine [Norvasc] 5 mg PO DAILY 01/18/25 01/18/25 History Allergies Allergy/AdvReac Type Severity Reaction Status Date / Time No Known Allergies Allergy Verified 01/18/25 09:42 Physical Examination Osteopathic Statement: *. No significant issues noted on an osteopathic structural exam other than those noted in the History and Physical/Consult.
[~2025-01-23 07:22] MED LIST changes: -ALPRAZolam 0.25 MG TAB PO PRN; -HEPARIN SODIUM,PORCINE (1 ML) 2,500 UNIT in SODIUM CHLORIDE 0.9% 250 ML IRRIGATION PRN; -HEPARIN SODIUM,PORCINE 10,000 UNIT in SODIUM CHLORIDE 0.9% 1,000 ML IRRIGATION PRN; +LIDOCAINE 1% (10MG/ML) FOR IV START INTRADERMA PRN; -NITROGLYCERIN SL TABS 0.4 MG TAB SUBLINGUAL PRN; +TRANEXAMIC 1,000 MG/100ML-NACL 1,000 MG in SALINE 1 100ML.BAG IVPB PRN
[2025-01-23 08:26] LABS: Glucose,Whole Blood 116 mg/dL (70-110)
[2025-01-23] MEDS: IV FLUID CONTINUATION 1,000 ML IV ONE ×2 (08:47→08:48)
[2025-01-23] MEDS: MIDAZOLAM 2 MG/2 ML VIAL IV STA (08:48)
[2025-01-23] MEDS: ONDANSETRON 4 MG/2 ML VIAL IVP PRN (08:49)
[2025-01-23] MEDS: ACETAMINOPHEN TAB 500 MG TAB PO PRN (08:50)
[2025-01-23] MEDS: GABAPENTIN 300 MG CAP PO PRN (08:50)
[2025-01-23] MEDS: LACTATED RINGERS 1,000 ML IV SCH (08:52)
[2025-01-23] MEDS ORDERED: HYDROmorphone (PF) 1 MG/ML ONE (09:09)
[2025-01-23] MEDS ORDERED: NEOSTIGMINE 1 MG/ML 10 ML VIAL ONE (09:09)
[2025-01-23] MEDS ORDERED: KETAMINE HCL IN 0.9 % NACL 50 MG/5 ML SYRINGE ONE (09:09)
[2025-01-23] MEDS ORDERED: GLYCOPYRROLATE 0.2 MG/ML 2 ML VIAL ONE (09:09)
[2025-01-23] MEDS ORDERED: PROPOFOL 10 MG/ML 20 ML VIAL IV ONE (09:09)
[2025-01-23] MEDS ORDERED: TRANEXAMIC 1,000 MG/100ML-NACL PREMIX BAG ONE (09:09)
[2025-01-23] MEDS ORDERED: PHENYLEPHRINE 10 MG/ML VIAL ONE (09:09)
[2025-01-23] MEDS ORDERED: SUCCINYLCHOLINE CHLORIDE 200 MG/10 ML VIAL IV ONE (09:09)
[2025-01-23] MEDS ORDERED: ROCURONIUM 10 MG/ML (5 ML VIAL) IV ONE (09:09)
[2025-01-23] MEDS ORDERED: fentaNYL (PF) 50 MCG/ML 2 ML AMP ONE (09:09)
[2025-01-23] MEDS ORDERED: LIDOCAINE 1% INJ 10MG/ML (20 ML MDV) ONE (09:09)
[2025-01-23] MEDS: THROMBIN (BOVINE) 5,000 UNIT VIAL TOPICAL ONE (10:15)
[2025-01-23] MEDS: LACTATED RINGERS 1,000 ML IV ONE ×2 (12:04→12:39)
[2025-01-23] MEDS ORDERED: MAGNESIUM HYDROXIDE 2,400 MG/30 ML CUP PO PRN (13:20)
[2025-01-23] MEDS ORDERED: SENNOSIDES-DOCUSATE SODIUM 1 EACH TAB PO PRN (13:20)
[2025-01-23] MEDS: VANCOMYCIN 1,000 MG VIAL MISCELLANE ONE (14:00)
--- NOTE | 2025-01-23 14:28 | XR ---
Fluoroscopy INDICATION: Pain FINDINGS: Fluoroscopy time: 1 minute 37 seconds. Total dose area product (DAP) in uGy*m?, mGy*cm? (or similar): 370.3 290 Images obtained: 6. Images document pedicle screw placement and fixation rods. IMPRESSION: 1. Documentation of fluoroscopy. [facility], , 01/23/2025 2:25 PM
--- NOTE | 2025-01-23 14:53 | FL ---
Fluoroscopy INDICATION: Pain FINDINGS: Fluoroscopy time: 1 minute 37 seconds. Total dose area product (DAP) in uGy*m?, mGy*cm? (or similar): 370.3 290 Images obtained: 0. IMPRESSION: 1. Documentation of fluoroscopy. [facility], , 01/23/2025 2:51 PM
--- NOTE | 2025-01-23 14:58 | P.OP ---
Date of Procedure: 01/23/25 Preoperative Diagnosis: 1.L2-S1 SEVERE SPONDYLOSIS WITH SEVER STENOSIS 2.NEUROGENIC CLAUDICATION 3.LLE RADICULOPATHY WITH WEAKNESS 4. LOW BACK PAIN 5. 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 LOW BACK PAIN 5. 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 L5-S1 INTRADISCAL OSTEOTOMY, 3 COLUMN, FOR DEFORMITY CORRECTION 2. L4-5 INTRADISCAL OSTEOTOMY, 3 COLUMN, FOR DEFORMITY CORRECTION 3. L2-3 POSTEROLATERAL AND INTERBODY FUSION 4. L3-4 POSTEROLATERAL AND INTERBODY FUSION 5. L4-5 POSTEROLATERAL AND INTERBODY FUSION 6. L5-S1 POSTEROLATERAL AND INTERBODY FUSION 7. BILATERAL OPEN SI JOINT FUSION FOR LONG CONSTRUCT STABILITY 8. L2-PELVIS SEGMENTAL INSTRUMENTATION 9. ATTACHMENT OF CAUDAL END OF THE CONSTRUCT TO THE BONY PELVIS NOT SACRUM 10. L1-2, L2-3, L3-4, L4-5, L5-S1 BILATERAL LAMINECTOMY, COMPLETE FACETECOMTY AND FORAMINOTOMY FOR COMPLETE NEURAL DECOMPRESSION, DEFORMITY CORRECTION AND CAGE PLACEMENT 11. INSERTION OF BIOMECHANICAL DEVICE, CAGES x4 12. USE OF BIOeCON NAVIGATION FOR SCREW PLACEMENT USE OF IONM ALL SCREWS TESTING > 20 mA Implants: -KRYSTIAN EVEREST RODS AND SCREWS WITH 1 CROSS LINK -GLOBUS SABLE CAGE x3 -INTRALIFT CAGE x1 -AUTOGRAFT, ALLOGRAFT, ALLOCELL, ARTHROCELL, CONTOUR, MAGNATOS Anesthesia: GETA Surgeon: Jean Alvarez Mortgage Closer #1: Carlos Joya (WAS PRESENT AND ASSISTED FROM POSITIOINING TO SECOND CAGE PLACEMENT) Mortgage Closer #2: Juan David Nicolas (WAS PRESENT FROM SECOND CAGE PLACEMENT TO DRESSING PLACEMENT) Estimated Blood Loss (ml): 600 IV fluids (ml): 3,000 Urine output (ml): 420 Pathology: none sent Condition: stable Disposition: PACU Indications for Procedure: Mr. Sorto is a 79-year-old male who presents for pre-operative evaluation preceding REVISION L2 TO PELVIS DECOMPRESSION WITH POSTEROLATERAL AND INTERBODY FUSION. Patient reports progressive lumbar pain (VAS 3/10) with associated left lower extremity radiculopathy, weakness, and neurogenic claudication symptoms. Conservative management including physical therapy, home exercise program, and pharmacological interventions ([place], NSAIDs, muscle relaxants) has failed to provide adequate relief. Imaging studies demonstrate severe spondylosis L2-S1 with significant stenosis, Grade 1 spondylolisthesis at L3-4, and degenerative changes. Patient has history of prior lumbar surgery in 1979. After thorough discussion of surgical risks, benefits, and alternatives, patient has elected to proceed with surgical intervention. Pre-operative clearance has been requested from PCP. Patient demonstrates understanding of proposed procedure and post- operative expectations. Description of Procedure: L2-PELVIS DECOMPRESSION AND FUSION (MICHAEL) SI BONE GRANIT PELVIS SCREWS L1-S1 DECOMPRESSION The patient was seen and examined in the preoperative area. All preoperative protocols were followed. Informed consent was obtained, risks and benefits of the procedure were discussed at length. Risks including bleeding infection damage to the surrounding tissue and risk of reoperation were discussed with the patient. Risk of anesthesia up to and including was discussed with the patient. These are outlined in the risk review. They were willing to accept these risks and all the risks of surgery. The patient was given a weight-based dose of antibiotics in the form of 3 g Ancef. The patient was seen and evaluated by the anesthesia team who deemed them fit for surgery. The site was marked, the patient was willing to proceed with the procedure. The patient was transferred to the operative suite by the Department of anesthesia. They were then drifted off to sleep by the department anesthesia and GETA was performed. The patient tolerated this well. Shah catheter was placed by nursing staff, a-traumatically. Once confirmation of lines and ventilation the patient was transferred to a prone Trios spine table very carefully. The head was secured and stable. X Ray confirmed alignment. All bony prominences including wrists, elbows, axilla, chest, hips, and thighs, and feet were padded very well. Special attention was paid to the genitalia, and these were padded accordingly. SCDs were placed on bilateral lower extremities and were connected. Arms were well padded and placed at 90/90 up and out and well padded. Safety strap and tape placed on the patient. Once in position, again we confirmed good ventilation capabilities and that lines were running appropriately. The patient's lumbosacral pelvic was then exposed. Hair was removed for incision. 1010s were placed outlining the incision site. Standard alcohol was used to clean the incision site and allowed to dry. C-arm was used to bio-caro the patient and confirm level for incision which was marked with a skin marker. Operative briefing was performed with all teams and everyone in agreement to proceed. The patient was then prepped and draped in a normal sterile fashion. Timeout was then performed, and all parties agreed with the procedure to be performed. Midline skin incision was then made over the previously bookmarked area and dissection taken down to the lumbosacral fascia which was identified and cleaned with a linares. There was excessive sub-q adipose that was obtrusive and needed to be retracted. Once midline was identified, fasciotomy was made over the SP of L1-S1 and pelvis. Subperiosteal dissection was then taken down over the lamina and facet joints and TPs were exposed and trough made posterolateral. TPs were then decorticated with a high speed brandie for lateral fusion. Dissection was taken out over the sacrum to the pelvis. SI joint identified and modified [place] starting point for pelvic screws identified as well. Retractors placed. Wound was irrigated and lateral image with penfield 4 placed at the pars of L4 confirmed levels for operation. SP clamp was then placed for the [employer] navigation tracker and secured. The wound was then filled with NSS and Z-drape. A 3D Ziehm spin was then obtained and registered. Once confirmation of accuracy screws were then placed from L2-Pelvis using navigation. Navigated high speed brandie was used to make a commercial pilot hole followed by a navigated awl-tap passed through the pedicle into the body. A ball tip probe then confirmed within the pedicle. The screw was then measured and placed using a navigated s crewdriver. After screws were placed from L2-S1, AP image confirmed safe placement of screws. Lateral images as well as navigation were then used to place bilateral SI bone Granit pelvic screws. Starting point selected just lateral to the SI joint and S2 pseudo facet. Lateral image taken and brandie used to make the commercial pilot hole. Gearshift then used to pass into the pelvis under lateral imaging just above the sciatic notch. 30 deg/30deg iliac oblique then taken to confirm within the teardrop and ball tip probe used to probe good bone. The screw was then measured and selected and placed under lateral imaging. This was repeated on the contralateral side. Screws were then visualized and appeared safe. Screws were then tested, and reliably tested screws tested above 20 mA. We then proceeded to decompression and interbody placement. Starting at L5-S1, bilateral laminectomy, complete facetectomy and foraminotomies were performed using high speed bur, Kerrison rongeur. There was exuberant bone formation throughout the entire lumbar spine, making the case very meticulous and difficult. Severe stenosis with dural scarring was noted at L3-S1. There was significant scar tissue surrounding these joints as well as the dura. Once exposed the neural elements were protected and an intradiscal osteotomy, 3 column, was performed for deformity correction at L5-S1. Osteotome was used to make osteotomy in L5 and S1 and for complete disc removal. A box osteotome was then used to widen this bilaterally. This was passed into the anterior 1/3 of L5. This allowed for loosening of this level and correction. A cage was then selected based on shaving and trials. Bleeding endplates were encountered and cartilage removed. Autograft, allograft were then placed anterior to the cage. The cage was then impacted into place under lateral imaging while protecting neural elements. The cage was then expanded into position and showed good lift and correction. Orthodoxy of lordosis and height achieved. Meticulous hemostasis then performed. Cage was backfilled with DBM and the area irrigated. At L4-5, bilateral laminectomy, complete facetectomy and foraminotomy were performed as described above. Again, exuberant bone formation was encountered and at this level. There was also a large disc osteophyte complex that was identified once disc space was found. The dura was carefully dissected off this anteriorly and b/l. Once encountered, the disc space was then accessed in a similar fashion and neural elements protected. Intradiscal, 3 column osteotomies, for deformity correction were then performed again at this level as described above. Once completed and complete discectomy performed there was good mobility at this level. Cage was then sized and selected. Autograft and allograft was then placed anterior in the disc space and the cage was then inserted and impacted into place under lateral. AP image, as before, was taken to ensure midline placement. The cage was then expanded into position. This restored height, lordosis and alignment well. The cage was tested and was stable. The wound was irrigated. Meticulous hemostasis then performed. At L3-4, bilateral laminectomy, complete facetectomy and foraminotomy were performed. Again exuberant bone formation noted and encountered along with dural scarring and ligamental cyst formations. The elements were then protected, and disc space accessed. Sequential shaving performed until desired height and lordosis. Cage selected, and graft placed anterior to the cage within the disc space. Cage was then placed under lateral image, expanded and had good height, lordosis and deformity correction. The wound was irrigated, and meticulous hemostasis performed once again. At L2-3 bilateral laminectomy, complete facetectomy and foraminotomy were performed. Again exuberant bone formation noted and encountered along with dural scarring and ligamental cyst formations. The elements were then protected, and disc space accessed. Sequential shaving performed until desired height and lordosis. Cage selected, and graft placed anterior to the cage within the disc space. Cage was then placed under lateral image, expanded and had good height, lordosis and deformity correction. The wound was irrigated, and meticulous hemostasis performed once again. At L1-2, bilateral laminectomy and partial medial facetectomy with foraminotomy were performed along with facet cyst removal at this level. The wound was irrigated, and meticulous hemostasis performed. Attention was then drawn to jean pierre placement. Rods were selected, measured, cut and bent to appropriate lordosis. They were then secured into pelvic screws b/l. Sequential reduction then done into each screw and set screw placed. Set screws were then final tightened and lateral image showed good lordosis reduction and sagittal alignment. The wound was then irrigated with 3L Ancef irrigation, 3L gentamicin irrigation, 2L Irricept through the case and 1L Betadine at the end of the case and 3L NSS. Surgicel was then placed on the dura, which was inspected and had no injury. Then, in the posterolateral gutter was placed, MagnatOs, Autograft and allograft. This was impacted into position and surgical placed over it. 2g Vanco powder was then placed deep in the wound. A deep, subfascial drain was placed and a superficial facial drain placed. We then proceeded with layered closure. #1 PDS placed in the deep fascia. 0 Vicryl placed in the deep subq, 2-0 placed in the superficial subq and karmen placed in the skin. The wound edges approximated very well. The wound was then cleaned with ETOH and dressed with adaptic, 4x4, ABD and tape. Drains sewed into position. IONM confirmed no changes. The patient was then transferred off the [facility] spine table to their hospital bed a-traumatically. Drains continued to hold suction. The patient was then extubated and transferred to the PACU/ICU in stable condition having tolerated the procedure with no complications.
[2025-01-23] MEDS: HYDROmorphone 0.5 MG/0.5 ML SYRINGE IVP PRN ×2 (15:08→22:19)
[2025-01-23] MEDS: HYDROmorphone 0.5 MG/0.5 ML SYRINGE IVP ONE (15:33)
[2025-01-23] MEDS: CYCLOBENZAPRINE 5 MG TAB PO PRN (16:59)
[2025-01-23] MEDS: HYDROcodone/APAP 10-325MG 1 EACH TAB PO PRN (16:59)
[2025-01-23] MEDS: HYDROmorphone 1 MG/ML 1 ML SYRINGE IVP PRN (18:29)
[2025-01-23] MEDS: ACETAMINOPHEN TAB 325 MG TAB PO SCH (18:29)
[2025-01-23] MEDS ORDERED: NITROGLYCERIN SL TABS 0.4 MG TAB SUBLINGUAL PRN (19:14)
[2025-01-23] MEDS: METOPROLOL TARTRATE 25 MG TAB PO SCH (21:24)
[2025-01-23] MEDS: TAMSULOSIN 0.4 MG CAP.ER.24H PO SCH (21:24)
[2025-01-24 04:08] LABS: Basophils % (A) 0 %; Eosinophils % (A) 0 %; HCT 35.5 % (39.0-53.0); HGB 11.2 gm/dL (13.0-17.5); Lymphocytes % (A) 9 %; MCH 30.9 pg (25.0-35.0); MCHC 31.6 g/dL (31.0-37.0); MCV 97.9 fL (80.0-100.0); Monocytes # (A) 0.7 k/uL (0-1.0); Monocytes % (A) 6 %; Neutrophils # (A) 9.1 k/uL (1.3-7.7); Neutrophils % (A) 84 %; Platelet Count 202 k/uL (150-450); RBC 3.63 m/uL (4.30-5.90); RDW 12.5 % (11.5-15.5); WBC 10.9 k/uL (3.8-10.6)
--- NOTE | 2025-01-24 07:30 | P.CONS ---
History of Present Illness - Reason for Consult Consult date: 01/23/25 Medical management Requesting physician: Jean Alvarez - Chief Complaint Status post L2 to pelvis fusion and decompression - History of Present Illness HISTORY OF PRESENT ILLNESS: This is a 79-year-old male with a previous medical history significant for hypertension and hypertensive cardiovascular disease, mixed hyperlipidemia, history of osteoarthritis, spondylosis of the cervical spine without myelopathy and arthropathy and spondylosis of the lumbar spine with radiculopathy to the left lower extremity as well as weakness of the left lower extremity enlarged prostate with lower urinary tract symptoms, paroxysmal atrial fibrillation status post permanent pacemaker placement has been under the care of cardiology Dr. Waddell, patient underwent L2 to pelvis decompression with fusion that was done by Dr. Alvarez today patient was seen in his room and his niece was at the bedside, patient was sitting up in bed in no apparent distress, he continues to have drain in place, with serosanguineous material coming out, he denies any chest pain at the time of evaluation, he has no shortness of breath, he is utilizing incentive spirometer correctly, he has no abdominal pain, nausea or vomiting, he denies any numbness around the groin area, he denies any shooting pain down the legs, he has no significant weakness except for dorsiflexion of the left big toe, patient appears to be stable at this point in time, he was started back on his medication, I held off aspirin and Eliquis until after discussing with spine surgery when we can start this medication hopefully in the next 24 hours. REVIEW OF SYSTEMS: Constitutional: No documented fever, no chills, no night sweats. No weight change. No weakness, fatigue or lethargy. No daytime sleepiness. EENT: No headache. No blurred vision or double vision, no loss of vision. No loss of Hearing, no ringing in the ears, no dizziness. No nasal drainage or congestion. No epistaxis. No sore throat. Lungs: No shortness of breath, no cough, no sputum production. No wheezing. Reports dyspnea with activity. Cardiovascular: No chest pain, no lower extremity edema. No palpitations. No paroxysmal nocturnal dyspnea. No orthopnea. No lightheadedness or dizziness. No syncopal episodes. Abdominal: Reports no abdominal pain. No nausea, vomiting. No diarrhea. No constipation. No bloody or tarry stools reports no loss of appetite. Genitourinary: No dysuria, increased frequency, urgency. No urinary retention. Musculoskeletal: No myalgias. No muscle weakness, no gait dysfunction, no f requent falls. positive for back pain. No neck pain. Integumentary: wound with dressing and wound drains , no lesions. No rash or pruritus. No unusual bruising. No change in hair or nails. Neurologic: No aphasia. No facial droop. No change in mentation. No head injury. No headache. No paralysis. No paresthesia. Psychiatric: No depression. No anxiety. No mood swings. Endocrine: No abnormal blood sugars. No weight change. PAST MEDICAL HISTORY: Hypertension and hypertensive cardiovascular disease. Mixed hyperlipidemia. Paroxysmal atrial fibrillation. Osteoarthritis. Enlarged prostate. Spondylosis of the cervical spine. Spondylosis of the lumbar spine status post L2 to pelvis fusion. Status post permanent pacemaker placement. Mild CAD status post left heart catheterization 07/29/2024. PAST SURGICAL HISTORY: Hernia repair. Permanent pacemaker placement 2018. Left heart catheterization 07/29/2024 mild disease. Colonoscopy 2019. Basal cell carcinoma removed from the nose 2023. SOCIAL HISTORY: Continues to smoke 3 pack every day since the age of 21 and quit at the age of 26 he drinks socially, he denies any marijuana use, he drinks about 2 to 3 cups of coffee on a daily basis but FAMILY HISTORY: Father at the age of 87 from multiorgan dysfunction and he had a history of coronary artery disease status post CABG x 3 mother at the age of 80 from diabetes complication had history of triple bypass as well congestive heart failure patient has 2 brothers 1 with diabetes and in both with hypertension 1 brother had triple coronary artery bypass graft and also had prostate cancer with prostatectomy and his son had prostate cancer as well patient has 1 sister with atrial fibrillation status post ablation. PHYSICAL EXAMINATION: General: 79-year-old male sitting up in bed in no apparent distress HEENT: Head is atraumatic, normocephalic, pupils were equal round reactive to light and recommendation, extraocular muscle movement were intact, sclera nonicteric, conjunctivae were pale, mucous membranes of the mouth are somewhat dry. Neck: Supple, no JVP, normal carotid upstroke bilaterally, no lymphadenopathy. Chest: Decreased breath sounds at the bases, few rhonchi, no expiratory wheezes, no chest wall tenderness, no intercostal retractions. Heart: First heart sound is normal, second heart sounds normal there is systolic ejection murmur 2/6 located in the left sternal border. Abdomen: Soft, nontender, nondistended, positive bowel sounds. Extremities: There is no edema no calf tenderness DP +2 bilaterally. Neurologic examination: Patient is awake alert and oriented x3, cranial nerves II-12 appear grossly intact, muscle power were 5 out of 5 in upper extremities and 5 out of 5 in bilateral lower extremities, deep tendon reflexes normal bilaterally. ASSESSMENT AND PLAN: 1. Postoperative day #0 status post L2 to pelvis decompression with fusion. Patient was instructed to use incentive spirometer to reduce the incidence of atelectasis and healthcare associated pneumonia, continue current pain management as outlined by spine surgery, physical therapy evaluation tomorrow morning, patient does appear to have a drain in the back. Follow-up with the patient very closely, discussed with spine surgery when can restart anticoagulat ion at this point in time I will hold off for the next 24 hours at least until discussing with spine surgery. 2. Hypertension and hypertensive cardiovascular disease. Continue patient on metoprolol 25 mg orally twice every day as well as amlodipine 5 mg once every day, monitor the patient blood pressure very closely. 3. Mixed hyperlipidemia. Continue patient on atorvastatin 40 mg orally once every day, monitor the patient lipid panel, keep LDL 55-70. 4. History of coronary artery disease status post left heart catheterization that showed mild CAD in 2023. Hold off aspirin for now, continue metoprolol 25 mg orally twice every day, continue atorvastatin 40 mg once every day, patient w as seen prior to his surgery by Dr. Waddell. 5. History of atrial fibrillation status post permanent pacemaker placement continue patient on metoprolol 25 mg orally twice every day hold Eliquis for at least next 24 hours 6. Diabetes mellitus type 2 currently not take any medication, his hemoglobin A1c was 6%, patient has been on diet only. 7. Enlarged prostate monitor for urinary retention. Currently has a Shah catheter in place. 8. 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 9. DVT prophylaxis. Early ambulation. Continue bilateral knee-high LEXII hose as well as SCDs. 10. GI prophylaxis. Continue patient on Protonix 40 mg orally once every day. 11. Thank you for the consult we will follow the patient with you. Past Medical History Past Medical History: Atrial Fibrillation, Coronary Artery Disease (CAD), Cancer, Hyperlipidemia, Hypertension, Osteoarthritis (OA), Prostate Disorder Additional Past Medical History / Comment(s): chronic back pain-lumbar disc compression, neck arthritis, basal cell carninoma on nose-removed 2023, borderline diabetes A1c=5.9, hx of AV block, carotid bruit History of Any Multi-Drug Resistant Organisms: None Reported Past Surgical History: Back Surgery, Orthopedic Surgery, Pacemaker Additional Past Surgical History / Comment(s): B/L knee arthroscopies, shoulder, R elbow, B/L hands trigger finger surg, [employer] Pacemaker left chest, Heart cath 6 months ago-no intervention. Past Anesthesia/Blood Transfusion Reactions: No Reported Reaction Additional Past Anesthesia/Blood Transfusion Reaction / Comm: no hx blood transfusion Type of Cardiac Device: Permanent Pacemaker Device Placement Date:: 2017 Past Psychological History: Anxiety Smoking Status: Former smoker Past Alcohol Use History: Daily Additional Past Alcohol Use History / Comment(s): Drinks beer daily states he drinks an 18 pack a week. Quit smoking 1972, smoked for 5 yrs. Past Drug Use History: None Reported - Past Family History Father Family Medical History: Cancer Additional Family Medical History / Comment(s): colon and skin CA Sister(s) Family Medical History: Cancer Additional Family Medical History / Comment(s): skin CA Mother Family Medical History: Diabetes Mellitus Brother(s) Family Medical History: Coronary Artery Disease (CAD) Medications and Allergies Home Medications Medication Instructions Recorded Confirmed Type Aspirin [Adult Low Dose Aspirin EC] 81 mg PO DAILY 09/30/18 01/23/25 History Atorvastatin Calcium [Lipitor] 40 mg PO DAILY 09/30/18 01/23/25 History Baclofen [Lioresal] 10 mg PO DAILY PRN 09/30/18 01/23/25 History valACYclovir HCL [Valtrex] 500 mg PO DAILY PRN 09/30/18 01/23/25 History Metoprolol Tartrate 25 mg PO BID 30 Days #90 tab 10/02/18 01/23/25 Rx Multivitamins, Thera [Multivitamin 1 tab PO DAILY 07/25/20 01/23/25 History (formulary)] Nitroglycerin Sl Tabs [Nitrostat] 0.4 mg SUBLINGUAL Q5M PRN #25 tab 07/31/20 01/23/25 Rx Ascorbic Acid [Vitamin C] 500 mg PO DAILY 07/28/24 01/23/25 History Tamsulosin HCl [Flomax] 0.4 mg PO BID 07/28/24 01/23/25 History Zinc Gluconate [Zinc] 50 mg PO DAILY 07/28/24 01/23/25 History Apixaban [Eliquis] 5 mg PO BID 07/29/24 01/23/25 History Acetaminophen Tab [Tylenol Tab] 1,000 mg PO DAILY PRN 08/24/24 01/23/25 History Cyclobenzaprine [Flexeril] 5 mg PO DAILY PRN 08/24/24 01/23/25 History HYDROcodone/APAP 5-325MG [[place] 1 tab PO Q6HR PRN 01/18/25 01/23/25 History 5-325] amLODIPine [Norvasc] 5 mg PO DAILY 01/18/25 01/23/25 History Allergies Allergy/AdvReac Type Severity Reaction Status Date / Time No Known Allergies Allergy Verified 01/23/25 08:28 Physical Exam Vitals: Vital Signs Temp Pulse Pulse Resp BP Pulse Ox 01/23/25 16:15 68 17 114/54 100 01/23/25 16:00 60 16 111/52 100 01/23/25 15:45 59 L 17 117/59 100 01/23/25 15:30 59 L 17 104/54 100 01/23/25 15:15 59 L 16 95/52 100 01/23/25 15:00 97.4 F L 61 15 99/55 98 01/23/25 09:03 60 16 140/72 97 01/23/25 08:11 97.4 F L 72 16 168/77 98 Intake and Output 01/23/25 01/23/25 01/23/25 06:59 14:59 22:59 Intake Total 3200 500 Output Total 1020 Balance 2180 500 Intake: IV 3200 500 Output: Urine 420 Estimated Blood Loss 600 Other: # Voids 0 Weight 84 kg 84 kg Results CBC & Chem 7: 01/24/25 03:36 Labs: Abnormal Lab Results - Last 24 Hours (Table) 01/23/25 Range/Units 08:23 POC Glucose (mg/dL) 116 H (70-110) mg/dL
--- NOTE | 2025-01-24 08:27 | CT ---
EXAMINATION TYPE: CT lumbar spine wo con DATE OF EXAM: 01/23/2025 11:32 PM COMPARISON: Prior CT lumbar spine August 26, 2024 CLINICAL INDICATION: Male, 79 years old with history of s/p revision L2-pelvis decompr fusion; PHH, s /p revision L2-pelvis decompress fusion TECHNIQUE: Unenhanced CT of the lumbar spine was performed. Bone and soft tissue window settings are submitted as well as coronal and sagittal reconstructions. CT DLP: 1260 mGycm Automated exposure control for dose reduction was used. FINDINGS: There are 5 lumbar type vertebra are redemonstrated. Interval long segment surgical changes with post erior interpedicular rods and screws bilaterally extending from L2 levels into the pelvis with screws extending into the bilateral iliac bones. Additional fusion screws through the bilateral sacroiliac joints are noted. There is new metallic disc material L2-L3 through the L5-S1 levels. Stable slight s coliotic curvature on coronal images. Stable satisfactory alignment on sagittal images. Extensive posterior decompression with multilevel bilateral laminectomy defects and spinous process r esection. Artifact from metallic hardware makes evaluation suboptimal. Ill-defined fluid and gas in t he posterior subcutaneous and deeper tissues is present consistent with recent surgery. Vertical orie nted posterior skin karmen are noted. Some air in the spinal canal at posterior L2 level axial image 31 is felt present. Persistent mild to moderate disc space narrowing and vacuum disc phenomenon at L 1-L2 level. Review of the axial images shows hardware position appears satisfactory. The left S1 screw slightly p enetrates the anterior margin of the sacrum axial image 72. Shah catheter in urinary bladder is mini hortensia imaged. Small amount of free fluid in pelvic cul-de-sac on the last axial images are noted. IMPRESSION: Extensive postsurgical changes beginning at L2 level. Hardware position. Satisfactory. S ome pneumocephalus noted. Alignment is stable. [facility], , 01/24/2025 8:25 AM
[2025-01-24] MEDS: MULTIVITAMINS, THERA 1 EACH TAB PO SCH (08:41)
[2025-01-24] MEDS: ATORVASTATIN 40 MG TAB PO SCH (08:41)
[2025-01-24] MEDS: ZINC SULFATE 220 MG CAP PO SCH (08:41)
[2025-01-24 08:44] LABS: Blood Urea Nitrogen 10.8 mg/dL (9.0-27.0); Calcium 8.2 mg/dL (8.7-10.3); Carbon Dioxide 24.7 mmol/L (21.6-31.8); Chloride 98 mmol/L (96-109); Glucose 120 mg/dL (70-110); Potassium 4.2 mmol/L (3.5-5.5); Sodium 131 mmol/L (135-145)
[2025-01-24] MEDS: amLODIPine 5 MG TAB PO SCH (08:47)
--- NOTE | 2025-01-24 10:43 | P.ANPRN ---
Procedure Note - Anesthesia - Invasive Line Right Arterial Line Time Out Performed: Yes Date of Procedure: 01/23/25 Time of Procedure: 08:45 Location of Patient: PreOp Preparation: Sterile Prep, Sterile Dressing Arterial Line Location: Radial Ultrasound Used: No Purpose - Visualization and Identification of Vasculature: No Image Stored and Saved: No Narrative: Invasive line placement per sterile protocol utilized.
--- NOTE | 2025-01-24 13:10 | P.PN ---
Subjective Progress Note Date: 01/24/25 Principal diagnosis: 1.L2-S1 SEVERE SPONDYLOSIS WITH SEVER STENOSIS 2.NEUROGENIC CLAUDICATION 3.LLE RADICULOPATHY WITH WEAKNESS 4. LOW BACK PAIN 5. 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 Patient about to work with therapy with walker at bedside. Shah is currently in place. Patient says pain is well-controlled for the most part but did say he had a increasing amount of pain overnight last night. Patient denies any other issues at this time. Objective - Vital Signs Vital signs: Vital Signs Temp 98.3 F 01/24/25 07:10 Pulse 71 01/24/25 07:10 Resp 18 01/24/25 07:10 BP 102/56 01/24/25 07:10 Pulse Ox 94 L 01/24/25 07:10 FiO2 Intake & Output 01/23/25 01/24/25 01/24/25 18:59 06:59 18:59 Intake Total 3700 760 Output Total 1020 1610 500 Balance 2680 -850 -500 Weight 84 kg Intake: IV 3700 Oral 760 Output: Drainage 660 150 Back 660 150 Urine 420 950 350 Uretheral (Shah) 350 Estimated Blood Loss 600 Other: Voiding Method Indwelling Catheter Indwelling Catheter # Voids 0 - Exam Postop dressing appears to be clean, dry, tact of the lumbar spine. Significant output in drain overnight and this morning. Maintain drain to full suction at this time. Monitor every 8 hours. Plan for dressing change tomorrow. Sensation is somewhat diminished from L2-S1 dermatomes. There is some generalized tenderness to patient over the lumbar spine near incision. Nontender on rest of exam. Patient does have similar range of motion in the bilateral hips secondary referred pain and stiffness in the low back. Good range of motion throughout rest of extremities on exam. 5/5 in all major motor groups in bilateral upper extremities. 4/5 in bilateral ankles and dorsi/plantarflexion and EHL/FHL. Radial pulse intact, 2+ bilaterally. Cap refill under 3 seconds in digits of upper extremities. Negative Homans bilaterally. Negative clonus bilaterally. Negative Antonella bilaterally. - Labs CBC & Chem 7: 01/24/25 03:36 01/24/25 03:36 Labs: Abnormal Lab Results - Last 24 Hours (Table) 01/24/25 01/24/25 Range/Units 03:36 03:36 WBC 10.9 H (3.8-10.6) k/uL RBC 3.63 L (4.30-5.90) m/uL Hgb 11.2 L (13.0-17.5) gm/dL Hct 35.5 L (39.0-53.0) % Neutrophils # 9.1 H (1.3-7.7) k/uL Sodium 131 L (135-145) mmol/L Glucose 120 H (70-110) mg/dL Calcium 8.2 L (8.7-10.3) mg/dL Assessment and Plan Assessment: 1.L2-S1 SEVERE SPONDYLOSIS WITH SEVER STENOSIS 2.NEUROGENIC CLAUDICATION 3.LLE RADICULOPATHY WITH WEAKNESS 4. LOW BACK PAIN 5. 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 Patient stable at bedside this morning with postop dressing in place over lumbar spine and drain in place. Patient about to work with physical therapy. Plan for dressing change tomorrow. Keep drain to full suction at this time. Significant output in drain overnight. Hemoglobin stable at this time. Daily CBC. nursing to remove Shah if patient does well with therapy. Pain medication as needed. Weightbearing as tolerated with walker and assistance as necessary. We will continue to follow patient during stay in hospital. Discharge planning pending 2. Appreciate medical management 3. Pain management -[place]; Flexeril; gabapentin 4. DVT prophylaxis -mechanical 5. GI prophylaxis -Milk of magnesia; senna 6. PT/OT -weightbearing as tolerated with walker and assistance as needed 7. Encourage incentive spirometer use 8. Discharge planning -pending Time with Patient: Less than 30
--- NOTE | 2025-01-24 19:49 | P.PN ---
Subjective Progress Note Date: 01/24/25 HISTORY OF PRESENT ILLNESS: This is a 79-year-old male with a previous medical history significant for hypertension and hypertensive cardiovascular disease, mixed hyperlipidemia, history of osteoarthritis, spondylosis of the cervical spine without myelopathy and arthropathy and spondylosis of the lumbar spine with radiculopathy to the left lower extremity as well as weakness of the left lower extremity enlarged prostate with lower urinary tract symptoms, paroxysmal atrial fibrillation statu s post permanent pacemaker placement has been under the care of cardiology Dr. Waddell, patient underwent L2 to pelvis decompression with fusion that was done by Dr. Alvarez today patient was seen in his room and his niece was at the bedside, patient was sitting up in bed in no apparent distress, he continues to have drain in place, with serosanguineous material coming out, he denies any chest pain at the time of evaluation, he has no shortness of breath, he is utilizing incentive spirometer correctly, he has no abdominal pain, nausea or vomiting, he denies any numbness around the groin area, he denies any shooting pain down the legs, he has no significant weakness except for dorsiflexion of the left big toe, patient appears to be stable at this point in time, he was started back on his medication, I held off aspirin and Eliquis until after discussing with spine surgery when we can start this medication hopefully in the next 24 hours. 01/24: Patient is having more pain at this point in time, he denies any chest pain, shortness of breath, he is using incentive spirometer, but he is rating his pain as a 5 out of 10 intensity at this time, he has been getting Dilaudid as well as hydrocodone, patient is moving his upper extremities and lower extremities, he continues to have the drain in place, draining serosanguineous material, patient will be seen in follow-up with physical therapy and Occupational Therapy, spine surgeon to follow-up with the patient, will discuss with the spine surgery whether or not the patient is able to be started back on his Eliquis hopefully in the next 24 hours. REVIEW OF SYSTEMS: Constitutional: No documented fever, no chills, no night sweats. No weight change. No weakness, fatigue or lethargy. No daytime sleepiness. EENT: No headache. No blurred vision or double vision, no loss of vision. No loss of Hearing, no ringing in the ears, no dizziness. No nasal drainage or congestion. No epistaxis. No sore throat. Lungs: No shortness of breath, no cough, no sputum production. No wheezing. Reports dyspnea with activity. Cardiovascular: No chest pain, no lower extremity edema. No palpitations. No paroxysmal nocturnal dyspnea. No orthopnea. No lightheadedness or dizziness. No syncopal episodes. Abdominal: Reports no abdominal pain. No nausea, vomiting. No diarrhea. No constipation. No bloody or tarry stools reports no loss of appetite. Genitourinary: No dysuria, increased frequency, urgency. No urinary retention. Musculoskeletal: No myalgias. No muscle weakness, no gait dysfunction, no frequent falls. positive for back pain. No neck pain. Integumentary: wound with dressing and wound drains , no lesions. No rash or pruritus. No unusual bruising. No change in hair or nails. Neurologic: No aphasia. No facial droop. No change in mentation. No head injury. No headache. No paralysis. No paresthesia. Psychiatric: No depression. No anxiety. No mood swings. Endocrine: No abnormal blood sugars. No weight change. PHYSICAL EXAMINATION: General: 79-year-old male sitting up in bed in no apparent distress HEENT: Head is atraumatic, normocephalic, pupils were equal round reactive to light and recommendation, extraocular muscle movement were intact, sclera nonicteric, conjunctivae were pale, mucous membranes of the mouth are somewhat dry. Neck: Supple, no JVP, normal carotid upstroke bilaterally, no lymphadenopathy. Chest: Decreased breath sounds at the bases, few rhonchi, no expiratory w heezes, no chest wall tenderness, no intercostal retractions. Heart: First heart sound is normal, second heart sounds normal there is systolic ejection murmur 2/6 located in the left sternal border. Abdomen: Soft, nontender, nondistended, positive bowel sounds. Extremities: There is no edema no calf tenderness DP +2 bilaterally. Neurologic examination: Patient is awake alert and oriented x3, cranial nerves II-12 appear grossly intact, muscle power were 5 out of 5 in upper extremities and 5 out of 5 in bilateral lower extremities, deep tendon reflexes normal bilaterally. ASSESSMENT AND PLAN: 1. Postoperative day # 1 status post L2 to pelvis decompression with fusion. Patient was instructed to use incentive spirometer to reduce the incidence of atelectasis and healthcare associated pneumonia, continue current pain management as outlined by spine surgery, physical therapy evaluation tomorrow morning, patient does appear to have a drain in the back. Follow-up with the patient very closely, we will discuss with spine surgery when to start anticoagulation at this time. 2. Hypertension and hypertensive cardiovascular disease. Continue patient on metoprolol 25 mg orally twice every day as well as amlodipine 5 mg once every day, monitor the patient blood pressure very closely. 3. Mixed hyperlipidemia. Continue patient on atorvastatin 40 mg orally once every day, monitor the patient lipid panel, keep LDL 55-70. 4. History of coronary artery disease status post left heart catheterization that showed mild CAD in 2023. Hold off aspirin for now, continue metoprolol 25 mg orally twice every day, continue atorvastatin 40 mg once every day, patient was seen prior to his surgery by Dr. Waddell. 5. History of atrial fibrillation status post permanent pacemaker placement c ontinue patient on metoprolol 25 mg orally twice every day hold Eliquis for at least next 24 hours 6. Diabetes mellitus type 2 currently not take any medication, his hemoglobin A1c was 6%, patient has been on diet only. 7. Enlarged prostate monitor for urinary retention. Currently has a Shah catheter in place. 8. 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 9. DVT prophylaxis. Early ambulation. Continue bilateral knee-high LEXII hose as well as SCDs. Hold Eliquis for today. 10. GI prophylaxis. Continue patient on Protonix 40 mg orally once every day. Objective - Vital Signs Vital signs: Vital Signs Temp 97.8 F 01/24/25 01:23 Pulse 81 01/24/25 01:23 Resp 18 01/24/25 01:23 BP 122/62 01/24/25 01:23 Pulse Ox 96 01/24/25 01:23 FiO2 Intake & Output 01/23/25 01/24/25 01/24/25 18:59 06:59 18:59 Intake Total 3700 760 Output Total 1020 1610 Balance 2680 -850 Weight 84 kg Intake: IV 3700 Oral 760 Output: Drainage 660 Back 660 Urine 420 950 Estimated Blood Loss 600 Other: Voiding Method Indwelling Catheter # Voids 0 - Labs CBC & Chem 7: 01/24/25 03:36 01/24/25 03:36 Labs: Abnormal Lab Results - Last 24 Hours (Table) 01/23/25 01/24/25 Range/Units 08:23 03:36 WBC 10.9 H (3.8-10.6) k/uL RBC 3.63 L (4.30-5.90) m/uL Hgb 11.2 L (13.0-17.5) gm/dL Hct 35.5 L (39.0-53.0) % Neutrophils # 9.1 H (1.3-7.7) k/uL POC Glucose (mg/dL) 116 H (70-110) mg/dL
[2025-01-25] MEDS: ONDANSETRON 4 MG/2 ML VIAL IVP PRN (02:36)
[2025-01-25] MEDS: ASPIRIN 81 MG PO SCH (08:20)
[2025-01-25 13:10] LABS: HGB 10.9 gm/dL (13.0-17.5); MCH 31.3 pg (25.0-35.0); MCHC 32.1 g/dL (31.0-37.0); MCV 97.8 fL (80.0-100.0); Mean Platelet Volume 7.6; Platelet Count 191 k/uL (150-450); RBC 3.48 m/uL (4.30-5.90); RDW 12.8 % (11.5-15.5); WBC 11.9 k/uL (3.8-10.6)
--- NOTE | 2025-01-25 13:46 | P.PN ---
Subjective Progress Note Date: 01/25/25 Principal diagnosis: 1.L2-S1 SEVERE SPONDYLOSIS WITH SEVER STENOSIS 2.NEUROGENIC CLAUDICATION 3.LLE RADICULOPATHY WITH WEAKNESS 4. LOW BACK PAIN 5. 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 Patient says he did work with therapy this morning and got up and walked around the room and into the hallway. Patient says he is using walker to aid in ambulation. Patient says he has urinated since Shah was removed. Patient denies any urinary issues at this time. Patient denies any other issues at this time. Objective - Vital Signs Vital signs: Vital Signs Temp 98.4 F 01/25/25 07:09 Pulse 68 01/25/25 07:57 Resp 18 01/25/25 07:09 BP 134/66 01/25/25 07:09 Pulse Ox 100 01/25/25 07:09 FiO2 Intake & Output 01/24/25 01/25/25 01/25/25 18:59 06:59 18:59 Intake Total 160 Output Total 800 2860 Balance -640 -2860 Intake: Intake, IV Titration 160 Amount Lactated Ringers 1,000 ml 160 @ 20 mls/hr IV .Q24H [facility] Rx#:[id number] Output: Drainage 450 360 Back 450 360 Urine 350 2500 Straight 1400 Uretheral (Shah) 350 Other: Voiding Method Indwelling Catheter Toilet # Voids 3 3 - Exam Postop dressing appears to be clean, dry, tact of the lumbar spine. Significant output in drain overnight and this morning. Maintain drain to half suction at this time. Monitor every 8 hours. Dressing changed at bedside. Incision appears to be healing well. Negative for any active drainage. New dressing placed over incision. [place] well aligned and intact. Sensation is somewhat diminished from L2-S1 dermatomes. There is some generalized tenderness to patient over the lumbar spine near incision. Nontender on rest of exam. Patient does have similar range of motion in the bilateral hips secondary referred pain and stiffness in the low back. Good range of motion throughout rest of extremities on exam. 5/5 in all major motor groups in bilateral upper extremities. 4/5 in bilateral ankles and dorsi/plantarflexion and EHL/FHL. Radial pulse intact, 2+ bilaterally. Cap refill under 3 seconds in digits of u pper extremities. Negative Homans bilaterally. Negative clonus bilaterally. Negative Antonella bilaterally. - Labs CBC & Chem 7: 01/25/25 12:53 01/24/25 03:36 Labs: Abnormal Lab Results - Last 24 Hours (Table) 01/25/25 Range/Units 12:53 WBC 11.9 H (3.8-10.6) k/uL RBC 3.48 L (4.30-5.90) m/uL Hgb 10.9 L (13.0-17.5) gm/dL Hct 34.0 L (39.0-53.0) % Assessment and Plan Assessment: 1.L2-S1 SEVERE SPONDYLOSIS WITH SEVER STENOSIS 2.NEUROGENIC CLAUDICATION 3.LLE RADICULOPATHY WITH WEAKNESS 4. LOW BACK PAIN 5. 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 Patient stable at bedside this morning with postop dressing in place over lumbar spine and drain in place. Dressing changed at bedside this morning. Incision is clean, dry, intact. Drain moved to half suction. Keep drain to half suction at this time. Significant output in drain overnight. Hemoglobin stable at this time. Daily CBC. Pain medication as needed. Weightbearing as tolerated with walker and assistance as necessary. We will continue to follow patient during stay in hospital. Discharge planning -> home Thursday vs Thursday 2. Appreciate medical management 3. Pain management -[place]; Flexeril; gabapentin 4. DVT prophylaxis -mechanical 5. GI prophylaxis -Milk of magnesia; senna 6. PT/OT -weightbearing as tolerated with walker and assistance as needed 7. Encourage incentive spirometer use 8. Discharge planning - home Thursday vs Thursday Time with Patient: Less than 30
--- NOTE | 2025-01-26 10:29 | P.PN ---
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 Waddell, patient underwent L2 to pelvis decompression with fusion that was done by Dr. Alvarez today patient was seen in his room and his niece was at the bedside, patient was sitting up in bed in no apparent distress, he continues to have drain in place, with serosanguineous material coming out, he denies any chest pain at the time of evaluation, he has no shortness of breath, he is utilizing incentive spirometer correctly, he has no abdominal pain, nausea or vomiting, he denies any numbness around the groin area, he denies any shooting pain down the legs, he has no significant weakness except for dorsiflexion of the left big toe, patient appears to be stable at this point in time, he was started back on his medication, I held off aspirin and Eliquis until after discussing with spine surgery when we can start this medication hopefully in the next 24 hours. 01/24: Patient is having more pain at this point in time, he denies any chest pain, shortness of breath, he is using incentive spirometer, but he is rating his pain as a 5 out of 10 intensity at this time, he has been getting Dilaudid as well as hydrocodone, patient is moving his upper extremities and lower extremities, he continues to have the drain in place, draining serosanguineous material, patient will be seen in follow-up with physical therapy and Occupational Therapy, spine surgeon to follow-up with the patient, will discuss with the spine surgery whether or not the patient is able to be started back on his Eliquis hopefully in the next 24 hours. 01/25: Patient is sitting up in bed he continues to be in significant amount of pain, significant output from the drain, he had a CT scan of the lumbar spine that showed good alignment, we will continue to monitor the patient very closely, Shah catheter was removed, increase activity, continue current pain management, continue to hold off anticoagulation as the patient does have si gnificant amount of bleeding out of the drain, hold off aspirin as well, will follow-up with the patient over the next 24 hours per REVIEW OF SYSTEMS: Constitutional: No documented fever, no chills, no night sweats. No weight change. No weakness, fatigue or lethargy. No daytime sleepiness. EENT: No headache. No blurred vision or double vision, no loss of vision. No loss of Hearing, no ringing in the ears, no dizziness. No nasal drainage or congestion. No epistaxis. No sore throat. Lungs: No shortness of breath, no cough, no sputum production. No wheezing. Reports dyspnea with activity. Cardiovascular: No chest pain, no lower extremity edema. No palpitations. No paroxysmal nocturnal dyspnea. No orthopnea. No lightheadedness or dizziness. No syncopal episodes. Abdominal: Reports no abdominal pain. No nausea, vomiting. No diarrhea. No constipation. No bloody or tarry stools reports no loss of appetite. Genitourinary: No dysuria, increased frequency, urgency. No urinary retention. Musculoskeletal: No myalgias. No muscle weakness, no gait dysfunction, no frequent falls. positive for back pain. No neck pain. Integumentary: wound with dressing and wound drain , no lesions. No rash or pruritus. No unusual bruising. No change in hair or nails. Neurologic: No aphasia. No facial droop. No change in mentation. No head injury. No headache. No paralysis. No paresthesia. Psychiatric: No depression. No anxiety. No mood swings. Endocrine: No abnormal blood sugars. No weight change. PHYSICAL EXAMINATION: General: 79-year-old male sitting up in bed in no apparent distress HEENT: Head is atraumatic, normocephalic, pupils were equal round reactive to light and recommendation, extraocular muscle movement were intact, sclera nonicteric, conjunctivae were pale, mucous membranes of the mouth are somewhat dry. Neck: Supple, no JVP, normal carotid upstroke bilaterally, no lymphadenopathy. Chest: Decreased breath sounds at the bases, few rhonchi, no expiratory wheezes, no chest wall tenderness, no intercostal retractions. Heart: First heart sound is normal, second heart sounds normal there is systolic ejection murmur 2/6 located in the left sternal border. Abdomen: Soft, nontender, nondistended, positive bowel sounds. Extremities: There is no edema no calf tenderness DP +2 bilaterally. Neurologic examination: Patient is awake alert and oriented x3, cranial nerves II-12 appear grossly intact, muscle power were 5 out of 5 in upper extremities and 5 out of 5 in bilateral lower extremities, deep tendon reflexes normal bilaterally. ASSESSMENT AND PLAN: 1. Postoperative day # 3 status post L2 to pelvis decompression with fusion. Patient was instructed to use incentive spirometer to reduce the incidence of atelectasis and healthcare associated pneumonia, continue current pain management as outlined by spine surgery, physical therapy evaluation tomorrow morning, patient does appear to have a drain in the back. Follow-up with the patient very closely, hold off anticoagulation as the patient output in the drain still high. 2. Hypertension and hypertensive cardiovascular disease. Continue patient on metoprolol 25 mg orally twice every day as well as amlodipine 5 mg once every day, monitor the patient blood pressure very closely. 3. Mixed hyperlipidemia. Continue patient on atorvastatin 40 mg orally once every day, monitor the patient lipid panel, keep LDL 55-70. 4. History of coronary artery disease status post left heart catheterization that showed mild CAD in 2023. Hold off aspirin for now, continue metoprolol 25 mg orally twice every day, continue atorvastatin 40 mg once every day, patient was seen prior to his surgery by Dr. Waddell. 5. History of atrial fibrillation status post permanent pacemaker placement continue patient on metoprolol 25 mg orally twice every day hold Eliquis for now. 6. Diabetes mellitus type 2 currently not take any medication, his hemoglobin A1c was 6%, patient has been on diet only. 7. Enlarged prostate monitor for urinary retention. Shah catheter was removed. 8. 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 9. DVT prophylaxis. Early ambulation. Continue bilateral knee-high LEXII hose as well as SCDs. Hold Eliquis 10. GI prophylaxis. Continue patient on Protonix 40 mg orally once every day. 11. Increase activity Objective - Vital Signs Vital signs: Vital Signs Temp 98.4 F 01/25/25 07:09 Pulse 68 01/25/25 07:57 Resp 18 01/25/25 07:09 BP 134/66 01/25/25 07:09 Pulse Ox 100 01/25/25 07:09 FiO2 Intake & Output 01/24/25 01/25/25 01/25/25 18:59 06:59 18:59 Intake Total 160 Output Total 800 2860 Balance -640 -2860 Intake: Intake, IV Titration 160 Amount Lactated Ringers 1,000 ml 160 @ 20 mls/hr IV .Q24H [facility] Rx#:[id number] Output: Drainage 450 360 Back 450 360 Urine 350 2500 Straight 1400 Uretheral (Shah) 350 Other: Voiding Method Indwelling Catheter Toilet # Voids 3 3 - Labs CBC & Chem 7: 01/25/25 12:53 01/24/25 03:36 Labs: Abnormal Lab Results - Last 24 Hours (Table) 01/25/25 Range/Units 12:53 WBC 11.9 H (3.8-10.6) k/uL RBC 3.48 L (4.30-5.90) m/uL Hgb 10.9 L (13.0-17.5) gm/dL Hct 34.0 L (39.0-53.0) %
[2025-01-26 10:35] LABS: Basophils # (A) 0.01 X 10*3/uL (0.00-0.10); Basophils % (A) 0.1 %; Eosinophils # (A) 0.04 X 10*3/uL (0.04-0.35); Eosinophils % (A) 0.5 %; HCT 26.8 % (39.6-50.0); HGB 8.9 g/dL (13.0-17.0); Lymphocytes % (A) 10.6 %; MCH 31.1 pg (27.0-32.0); MCHC 33.2 g/dL (32.0-37.0); MCV 93.7 FL (80.0-97.0); Mean Platelet Volume 9.7 FL (9.5-12.2); Monocytes % (A) 9.4 %; NRBC Per 100 WBC 0 X 10*3/uL (0.00-0.01); Neutrophils # (A) 6.73 X 10*3/uL (1.80-7.70); Platelet Count 157 X 10*3/uL (140-440); RBC 2.86 X 10*6/uL (4.40-5.60); RDW 12.9 % (11.5-14.5); WBC 8.51 X 10*3/uL (4.50-10.00)
[2025-01-26 10:51] LABS: ALT 22 U/L (10-49); AST 44 U/L (14-35); Albumin 3.2 g/dL (3.8-4.9); Albumin/Globulin Ratio 2.29 Ratio (1.60-3.17); Alkaline Phosphatase 61 U/L (41-126); BUN/Creat Ratio 8.78 Ratio (12.00-20.00); Blood Urea Nitrogen 7.9 mg/dL (9.0-27.0); Calcium 8.2 mg/dL (8.7-10.3); Carbon Dioxide 26.2 mmol/L (21.6-31.8); Chloride 96 mmol/L (96-109); Globulin 1.4 g/dL (1.6-3.3); Glucose 127 mg/dL (70-110); Potassium 4.4 mmol/L (3.5-5.5); Sodium 129 mmol/L (135-145); Total Bilirubin 1.7 mg/dL (0.3-1.2); Total Protein 4.6 g/dL (6.2-8.2)
--- NOTE | 2025-01-26 11:34 | P.PN ---
Subjective Progress Note Date: 01/26/25 Principal diagnosis: Status post [id number] posterior lateral decompression and fusion, bilateral SI joint fusion Patient is evaluated today at bedside, he is resting in his hospital bed. Patient continues to progress well with his overall activity and pain control. We did adjust his drain yesterday to half compression, continues to put out bloody serosanguineous drainage, it is decreasing slowly. We have kept the Eliquis on hold at this time, this was also discussed with internal medicine. Patient feels that the left lower extremity is improving slightly, he continues to have a little bit of weakness. He denies any mary loss of motion of the bilateral lower extremities. He is passing gas, he has not had a bowel movement at this time. He denies headaches, lightheadedness, chest pain or shortness of breath at this time. Objective - Vital Signs Vital signs: Vital Signs Temp 98.5 F 01/26/25 07:40 Pulse 70 01/26/25 07:40 Resp 17 01/26/25 07:40 BP 127/57 01/26/25 07:40 Pulse Ox 97 01/26/25 07:40 FiO2 Intake & Output 01/25/25 01/26/25 01/26/25 18:59 06:59 18:59 Output Total 80 Balance -80 Output: Drainage 80 Back 80 Other: Voiding Method Toilet Toilet Toilet Urinal Urinal Urinal # Voids 5 2 # Bowel Movements 0 - Exam Gen: AOx3, NAD VSS stable at this time Integument: Postop dressing is in good position and condition, drain is in good position and condition Palpation: Mild tenderness with palpation of the lower lumbar spine ROM: Full range of motion all major muscle groups of the bilateral upper and lower extremities, no focal deficits appreciated Sensory Exam: Senory exam to light touch is intact C5-T1 Senosry exam to light touch is intact L2-S1 Motor: 5/5 strength appreciate the bilateral upper extremities with shoulder elevation, shoulder abduction, elbow extension, elbow flexion, wrist extension, wrist flexion, electric lineman 4/5 strength in the left lower extremity with hip flexion, knee extension, knee flexion, plantarflexion, dorsiflexion, EHL, FHL 5/5 strength appreciated the right lower extremity with hip flexion, knee extension, knee flexion, plantarflexion, dorsiflexion, EHL, FHL Reflexes: 2/4 in all UE and LE Negative Antonella's bilaterally Negative Babinski bilaterally Negative clonus bilaterally - Labs CBC & Chem 7: 01/26/25 04:41 01/26/25 04:41 Labs: Abnormal Lab Results - Last 24 Hours (Table) 01/25/25 01/26/25 01/26/25 Range/Units 12:53 04:41 04:41 WBC 11.9 H (3.8-10.6) k/uL RBC 3.48 L 2.86 L (4.30-5.90) m/uL Hgb 10.9 L 8.9 L (13.0-17.5) gm/dL Hct 34.0 L 26.8 L (39.0-53.0) % Sodium 129 L (135-145) mmol/L BUN 7.9 L (9.0-27.0) mg/dL BUN/Creatinine Ratio 8.78 L (12.00-20.00) Ratio Glucose 127 H (70-110) mg/dL Calcium 8.2 L (8.7-10.3) mg/dL Total Bilirubin 1.7 H (0.3-1.2) mg/dL AST 44 H (14-35) U/L Total Protein 4.6 L (6.2-8.2) g/dL Albumin 3.2 L (3.8-4.9) g/dL Globulin 1.4 L (1.6-3.3) g/dL Assessment and Plan Assessment: Postoperative day #3 status post [id number] decompression and fusion, bilateral SI joint fusions Acute blood loss anemia, expected surgical outcome Other medical comorbidities Plan: Pain control, continue with current medications DVT prophylaxis, okay with starting aspirin at this time, would recommend holding Eliquis at least for another 24 hours pending drain output Monitor surgical dressing, drain was adjusted to gravity, planning to remove on 01/27/2025 Ferrous sulfate 325 mg twice a day for anemia Continue PT/OT Utilize brace when up and ambulating Weight-bear as tolerated with walker Other medical specialty recommendations appreciated Discharge planning: Due to patient's drain output and monitoring CBC, would like to keep patient in hospital for an additional night, hopefully discharge to home with home health care on 01/27/2025 Time with Patient: Less than 30
[2025-01-26] MEDS: FERROUS SULFATE 325 MG TAB PO SCH (17:38)
[2025-01-26] MEDS: HYDROcodone/APAP 5-325MG 1 EACH TAB PO PRN (17:38)
--- NOTE | 2025-01-26 18:35 | P.PN ---
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 Waddell, patient underwent L2 to pelvis decompression with fusion that was done by Dr. Alvarez today patient was seen in his room and his niece was at the bedside, patient was sitting up in bed in no apparent distress, he continues to have drain in place, with serosanguineous material coming out, he denies any chest pain at the time of evaluation, he has no shortness of breath, he is utilizing incentive spirometer correctly, he has no abdominal pain, nausea or vomiting, he denies any numbness around the groin area, he denies any shooting pain down the legs, he has no significant weakness except for dorsiflexion of the left big toe, patient appears to be stable at this point in time, he was started back on his medication, I held off aspirin and Eliquis until after discussing with spine surgery when we can start this medication hopefully in the next 24 hours. 01/24: Patient is having more pain at this point in time, he denies any chest pain, shortness of breath, he is using incentive spirometer, but he is rating his pain as a 5 out of 10 intensity at this time, he has been getting Dilaudid as well as hydrocodone, patient is moving his upper extremities and lower extremities, he continues to have the drain in place, draining serosanguineous material, patient will be seen in follow-up with physical therapy and Occupational Therapy, spine surgeon to follow-up with the patient, will discuss with the spine surgery whether or not the patient is able to be started back on his Eliquis hopefully in the next 24 hours. 01/25: Patient is sitting up in bed he continues to be in significant amount of pain, significant output from the drain, he had a CT scan of the lumbar spine that showed good alignment, we will continue to monitor the patient very closely, Shah catheter was removed, increase activity, continue current pain management, continue to hold off anticoagulation as the patient does have si gnificant amount of bleeding out of the drain, hold off aspirin as well, will follow-up with the patient over the next 24 hours . 01/26: Patient appears in the better spirits today he is sitting up in bed in no apparent distress, his pain is well-controlled today, his Shah catheter is out, he is able to void, he continues to have some bloody material coming out of the drain, better than yesterday, we will hold off Eliquis until the drain is out, likely home in the next 24 hours, continue aspirin 81 mg once every day, continue to increase activity level, patient is making good progress so far, no bowel movement yet, continue current treatment plan. REVIEW OF SYSTEMS: Constitutional: No documented fever, no chills, no night sweats. No weight change. No weakness, fatigue or lethargy. No daytime sleepiness. EENT: No headache. No blurred vision or double vision, no loss of vision. No loss of Hearing, no ringing in the ears, no dizziness. No nasal drainage or congestion. No epistaxis. No sore throat. Lungs: No shortness of breath, no cough, no sputum production. No wheezing. R eports dyspnea with activity. Cardiovascular: No chest pain, no lower extremity edema. No palpitations. No paroxysmal nocturnal dyspnea. No orthopnea. No lightheadedness or dizziness. No syncopal episodes. Abdominal: Reports no abdominal pain. No nausea, vomiting. No diarrhea. No constipation. No bloody or tarry stools reports no loss of appetite. Genitourinary: No dysuria, increased frequency, urgency. No urinary retention. Musculoskeletal: No myalgias. No muscle weakness, no gait dysfunction, no frequent falls. positive for back pain. No neck pain. Integumentary: wound with dressing and wound drain , no lesions. No rash or pruritus. No unusual bruising. No change in hair or nails. Neurologic: No aphasia. No facial droop. No change in mentation. No head injury. No headache. No paralysis. No paresthesia. Psychiatric: No depression. No anxiety. No mood swings. Endocrine: No abnormal blood sugars. No weight change. PHYSICAL EXAMINATION: General: 79-year-old male sitting up in bed in no apparent distress HEENT: Head is atraumatic, normocephalic, pupils were equal round reactive to light and recommendation, extraocular muscle movement were intact, sclera nonicteric, conjunctivae were pale, mucous membranes of the mouth are somewhat dry. Neck: Supple, no JVP, normal carotid upstroke bilaterally, no lymphadenopathy. Chest: Decreased breath sounds at the bases, few rhonchi, no expiratory wheezes, no chest wall tenderness, no intercostal retractions. Heart: First heart sound is normal, second heart sounds normal there is systolic ejection murmur 2/6 located in the left sternal border. Abdomen: Soft, nontender, nondistended, positive bowel sounds. Extremities: There is no edema no calf tenderness DP +2 bilaterally. Neurologic examination: Patient is awake alert and oriented x3, cranial nerves II-12 appear grossly intact, muscle power were 5 out of 5 in upper extremities and 5 out of 5 in bilateral lower extremities, deep tendon reflexes normal bilaterally. ASSESSMENT AND PLAN: 1. Postoperative day # 3 status post L2 to pelvis decompression with fusion. Patient was instructed to use incentive spirometer to reduce the incidence of at electasis and healthcare associated pneumonia, continue current pain management as outlined by spine surgery, physical therapy evaluation tomorrow morning, patient does appear to have a drain in the back. Follow-up with the patient very closely, hold off anticoagulation for tomorrow. 2. Hypertension and hypertensive cardiovascular disease. Continue patient on metoprolol 25 mg orally twice every day as well as amlodipine 5 mg once every day, monitor the patient blood pressure very closely. 3. Mixed hyperlipidemia. Continue patient on atorvastatin 40 mg orally once every day, monitor the patient lipid panel, keep LDL 55-70. 4. History of coronary artery disease status post left heart catheterization that showed mild CAD in 2023. Hold off aspirin for now, continue metoprolol 25 mg orally twice every day, continue atorvastatin 40 mg once every day, patient was seen prior to his surgery by Dr. Waddell. 5. History of atrial fibrillation status post permanent pacemaker placement continue patient on metoprolol 25 mg orally twice every day hold Eliquis for now. 6. Diabetes mellitus type 2 currently not take any medication, his hemoglobin A1c was 6%, patient has been on diet only. 7. Enlarged prostate monitor for urinary retention. Shah catheter was removed. 8. 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 9. DVT prophylaxis. Early ambulation. Continue bilateral knee-high LEXII hose as well as SCDs. Hold Eliquis till tomorrow. 10. GI prophylaxis. Continue patient on Protonix 40 mg orally once every day. 11. Increase activity Objective - Vital Signs Vital signs: Vital Signs Temp 98.5 F 01/26/25 07:40 Pulse 70 01/26/25 07:40 Resp 17 01/26/25 07:40 BP 127/57 01/26/25 07:40 Pulse Ox 97 01/26/25 07:40 FiO2 Intake & Output 01/25/25 01/26/25 01/26/25 18:59 06:59 18:59 Output Total 80 Balance -80 Output: Drainage 80 Back 80 Other: Voiding Method Toilet Toilet Toilet Urinal Urinal Urinal # Voids 5 2 # Bowel Movements 0 - Labs CBC & Chem 7: 01/26/25 04:41 01/26/25 04:41 Labs: Abnormal Lab Results - Last 24 Hours (Table) 01/25/25 Range/Units 12:53 WBC 11.9 H (3.8-10.6) k/uL RBC 3.48 L (4.30-5.90) m/uL Hgb 10.9 L (13.0-17.5) gm/dL Hct 34.0 L (39.0-53.0) %
[2025-01-26] MEDS ORDERED: APIXABAN 5 MG TAB PO SCH (21:00)
[2025-01-27 08:37] LABS: Basophils # (A) 0.02 X 10*3/uL (0.00-0.10); Basophils % (A) 0.3 %; Eosinophils # (A) 0.06 X 10*3/uL (0.04-0.35); Eosinophils % (A) 0.8 %; HCT 26.3 % (39.6-50.0); HGB 9.1 g/dL (13.0-17.0); Lymphocytes # (A) 0.69 X 10*3/uL (0.90-5.00); Lymphocytes % (A) 9.6 %; MCH 32.6 pg (27.0-32.0); MCHC 34.6 g/dL (32.0-37.0); MCV 94.3 FL (80.0-97.0); Mean Platelet Volume 9.5 FL (9.5-12.2); Monocytes # (A) 0.73 X 10*3/uL (0.20-1.00); Monocytes % (A) 10.2 %; NRBC Per 100 WBC 0 X 10*3/uL (0.00-0.01); Neutrophils # (A) 5.66 X 10*3/uL (1.80-7.70); Platelet Count 181 X 10*3/uL (140-440); RBC 2.79 X 10*6/uL (4.40-5.60); RDW 12.6 % (11.5-14.5); WBC 7.17 X 10*3/uL (4.50-10.00)
[2025-01-27 08:38] VITALS: RESP 16
[2025-01-27 08:56] LABS: ALT 24 U/L (10-49); AST 41 U/L (14-35); Albumin 3.3 g/dL (3.8-4.9); Albumin/Globulin Ratio 2.06 Ratio (1.60-3.17); Alkaline Phosphatase 63 U/L (41-126); BUN/Creat Ratio 10.11 Ratio (12.00-20.00); Blood Urea Nitrogen 9.1 mg/dL (9.0-27.0); Calcium 8.3 mg/dL (8.7-10.3); Carbon Dioxide 25.7 mmol/L (21.6-31.8); Chloride 94 mmol/L (96-109); Globulin 1.6 g/dL (1.6-3.3); Glucose 120 mg/dL (70-110); Potassium 4.5 mmol/L (3.5-5.5); Sodium 129 mmol/L (135-145); Total Bilirubin 1.6 mg/dL (0.3-1.2); Total Protein 4.9 g/dL (6.2-8.2)
--- NOTE | 2025-01-27 11:43 | P.DS ---
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 At this point patient has failed conservative treatment measures and has opted to proceed with a elective revision L2 to pelvis decompression and fusion. Hospital course: Details of patient's surgery can be found in operative report. Patient tolerated the procedure well and was subsequently transported to orthopedic floor. Patient's orthopeidc and medical care was provided daily. Patient had daily laboratory tests performed for evaluation of overall blood counts. Patient had daily physical therapy to include strengthening range of motion as well as education with walker ambulation. Patient was treated with aspirin for their postoperative DVT prophylaxis during their inpatient stay. Patient was noted to have a relatively uneventful postoperative course. Patient reported satisfactory pain control with oral pain medications by postoperative day 4. Patient showed satisfactory progress with physical therapy. Patient moved steadily through the program and had no difficulty meeting the goals by postoperative day 4. Given patient's otherwise satisfactory course and having met physical therapy goals, plan is to discharge patient home on postoperative day 4. Discharge condition/disposition: Patient will be discharged home in stable condition. Discharge medications: Instructions are given on resumption of patient's normal daily medications per primary care recommendation, in addition patient will be prescribed [place]; Flexeril; senna; Duricef. 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 Please discuss prescription refills at your follow up appointment. Do not call the hospital for medication refills. Dressing: Leave your dressing in place for a total of 5 days post operatively. Then you may remove your dressing and leave open to air. Keep the area clean and if not able to keep area clean, then cover with sterile gauze and tape. Showering: You may shower 3 days after your procedure allowing soap and water to run over incision. Do not scrub. Do not soak. Blot dry. Follow up: Please confirm a follow up appointment with your surgeon 3 weeks post operati vely. Please make an appointment to follow up with your PCP in 1-2 weeks after surgery for evaluation '3 phase, 3-week plan' POST OP WEEKS 1-3 1. Lifting/carrying/pushing/pulling limited to less than 5 pounds. 2. Do not sit for longer than 15 minutes at one time. Get up and walk around. Prolonged sitting is NOT advised. If you lay down, see if you can tolerate laying down on you front (belly side) 3. Walk for periods of 15 minutes = 1 mile but no longer; do it multiple times times each day. 4. Ice your low back after activity. POST OP WEEKS 3-6 1. Lifting limited to less than 20 pounds. 2. Do not sit for longer than 30 minutes at a time. Frequently change positions. Use a sit-to stand workstation or take frequent breaks from sitting if you have returned to work. 3. Walk for 30 minutes each day. If possible, do these three or more times a day POST OP WEEKS 6+ At your 6-week appointment we will give you a physical therapy referral to focus on a core stabilization and strengthening program. You should also work on leg & buttock strengthening, hamstring & quadriceps stretching, and continue a low impact aerobic activity program such as swimming, walking, or riding a stationary bicycle. During the initial 6 weeks after your surgery, you are at the highest risk of re-injuring your spine. You should generally avoid BLT's (bending, lifting and twisting combination motions) and follow the above guidelines to reduce the chance of reinjury. You can anticipate post op appointments in our office at approximately 3 weeks and 6 weeks after your surgery. INCISION CARE: If your incision is not draining you do NOT need to cover it with a dressing. Keep your incision clean, dry and intact. In most cases, we apply skin glue, karmen or sutures to the incision at the time of surgery. This will be like a crust or have the appearance of a scab and will fall off in time on its own. The stitches or karmen need to be removed at 3 weeks post op appointment. You may begin to shower 3 days after surgery (this allows the glue to lópez well). However, please avoid scrubbing the incision site or peeling off any of the skin glue. This will ensure optimal healing of your incision. Also, during this time avoid soaking the incision area in water - this includes swimming pools, hot tubs or baths. No ointments, lotions or oils on the incision until your surgeon allows. Leave karmen, sutures or glue in place. Neurological dysfunction that comes on suddenly can also be a sign of a stroke. Below some common symptoms of a stroke are listed: B - balance difficulty such as sudden onset walking or leaning to one side - NEW E - eye problem such as sudden double vision or trouble seeing on one side - NEW F - Facial weakness or numbness on one side - NEW A - Arm or leg weakness or numbness on one side - NEW S - Slurred speech or difficulty with word finding - NEW T - Time is BRAIN! Call 911 as soon as you recognize these symptoms Diet: Consume a regular diet rich in vegetables and lean protein such as chicken or fish. You should consume in a ratio of approximately 20% fats|40% carbohydrates|40%protein. Vegetables, sweet potatoes, brown rice or quinoa are examples of good carbohydrates. Chips, white bread, cookies and sweets/sugar are examples of bad carbohydrates. Limit your bad carbs, go wild with good carbs. "Life's Simple 7" Guidelines as per [employer] [employer] These will help you reclaim your life after surgery and press worker helper in your recovery, keeping in mind your restrictions. (1) Get Active. Physical activity can help people lose weight, control high blood pressure and cholesterol, feel emotionally better, and sleep better. (2) Control Cholesterol. Avoid a diet high in saturated fat, trans fat, & cholesterol. Limit whole milk & cream, ice cream, butter, egg yolks, processed meats (like sausage and hot dogs), and fatty meats. Choose healthy foods that are low in saturated fat, trans fat and cholesterol which include: Fruits and vegetables, fiber rich grain products (like whole grain pasta and brown rice), lean meat such as chicken, fish, nuts, seeds, and legumes. (3) Eat Better. Eat small portions. Shop at the grocery with a list and do not stray from it. Tips for a healthy diet include: Limit sodium intake to less than 1500mg daily, avoid prepackaged, processed, and fast foods, choose a diet rich in fruits, vegetables, and whole grain, high fiber foods, and limit saturated & cholesterol in your diet. (4) Manage Blood Pressure. If you have high blood pressure, you should have a cuff at home so that you can check your blood pressure regularly. Be sure you have a good cuff. An arm one is generally better than a wrist one. Bring the cuff to a doctor's appointment to validate that the measurements that your cuff are taking are accurate. Take your blood pressure twice daily when you are sitting down and relaxing. Record the numbers in a log and bring this log with you to your doctors' appointments. (5) Lose Weight if your BMI is above 25. A healthy BMI is between 19-25. To calculate Your BMI, you may use a Standard BMI Calculator on the NIH BMI website: <www.nhlbi.nih.gov/guidelines/obesity/BMI/bmicalc.htm>. Weigh oneself daily. If you are overweight, set a goal to lose weight. A pound a week loss if needed is a good target. (6) Reduce Blood Sugar. Limit foods and liquids with "added sugars." (Added sugars include sucrose, fructose, glucose, maltose, dextrose, high fructose corn syrup, corn syrup, concentrated fruit juice and honey). (7) Stop Smoking. If you smoke, quitting smoking is one of the best things that you can do for your health. Smoking increases your risk of heart attack, stroke, and peripheral vascular disease, which is a build-up of plaque in your arteries. Please discard all the cigarettes and lighters in your house. Have a plan for what you will do when you have the urge to smoke. Direct and second- hand smoke shortens your life as well as the lives of your family, friends and others around you. For your health and the health of those around you, please consider quitting! Proper Bending Body Mechanics: Maintain a wide stance with one foot slightly in front of the other. Keep your back straight. Bend utilizing the strength in your hips and knees. Do not bend at the waist. Maintain the lifted object at your waist-level close to your body. Avoid lifting weight that causes immediately pain or pain anywhere in the body afterwards. Smoking/Nicotine If there was ever one thing that you could do to increase your overall health, decrease your risk of cardiovascular problems by about 39% the second you make the choice, it is to STOP SMOKING. Your body's most instant gratification is the second you stop smoking. We have all heard the studies, read the articles but it is true, smoking is extremely bad for your overall health, and moreover it is detrimental to your bone health. Nicotine, IN ANY FORM, kills bone cells, prevents your body from healing fractures, and significantly prolongs healing after surgery. In spine surgery specifically, it increases your risk of not healing your bones to create a fusion and increases your risk of having a revision surgery due to this up to 60%. I know it is hard. I know it feels impossible. But there are ways. Take control of your life. We are here to help you through it. And when you are ready, ask us and we can direct you to help if you desire. Use the START Plan to Quit Smoking (please visit the Helpguide.org website listed below for more information): S = Set a quit date. Choose a date within the next 2 weeks, so you have enough time to prepare without losing your motivation to quit. If you mainly smoke at work, quit on the weekend, so you have a few days to adjust to the change. T = Tell family, friends, and co-workers that you plan to quit. Let your friends and family in on your plan to quit smoking and tell them you need their support and encouragement to stop. Look for a quit miryam who wants to stop smoking as well. You can help each other get through the rough times. A = Anticipate and plan for the challenges you'll face while quitting. Most people who begin smoking again do so within the first 3 months. You can help yourself make it through by preparing ahead for common challenges, such as nicotine withdrawal and cigarette cravings. R = Remove cigarettes and other tobacco products from your home, car, and work. Throw away all your cigarettes (no emergency pack!), lighters, ashtrays, and matches. Wash your clothes and freshen up anything that smells like smoke. Shampoo your car, clean your drapes and carpet, and steam your furniture. T = Talk to your doctor about getting help to quit. Your doctor can prescribe medication to help with withdrawal and suggest other alternatives. If you can't see a doctor, you can get many products over the counter at your local pharmacy or grocery store, including the nicotine patch, nicotine lozenges, and nicotine gum. Resources for Quitting Smoking: <https://www.[place].gov/docume nts/[facility]/Quit_Tobacco_Resources_for_patients_313480_7.pdf> Supplementation: Take recommended dosages of Vitamin D and Calcium to help fortify your bones and help them to heal. See your health maintenance packet for dosages and recommended levels. DVT/VTE prophylaxis: You will be given compression stockings from the hospital. Wear these daily for the first two weeks after surgery. You may take them off at night. You may be prescribed a medication to help thin your blood. Take this as directed. If you are not prescribed this medication, early and frequent ambulation has been shown to be the best prophylaxis to deep vein thrombosis and sequelae related to this event. 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 Procedures: L2 to pelvis revision decompression and fusion Patient Condition at Discharge: Good Plan - Discharge Summary Discharge Rx Participant: No New Discharge Prescriptions: New cefaDROXiL [Duricef] 500 mg PO Q12HR 5 Days #10 cap Cyclobenzaprine [Flexeril] 5 mg PO TID #21 tablet HYDROcodone/APAP 10-325MG [[place] 10-325] 1 tab PO Q6HR PRN #28 tab PRN Reason: Pain Sennosides/Docusate Sodium [Senna Plus 8.6-50 mg Softgel] 1 each PO DAILY #20 capsule No Action valACYclovir HCL [Valtrex] 500 mg PO DAILY PRN PRN Reason: Cold Sores Baclofen [Lioresal] 10 mg PO DAILY PRN PRN Reason: Pain Atorvastatin Calcium [Lipitor] 40 mg PO DAILY Aspirin [Adult Low Dose Aspirin EC] 81 mg PO DAILY Metoprolol Tartrate 25 mg PO BID 30 Days #90 tab Multivitamins, Thera [Multivitamin (formulary)] 1 tab PO DAILY Nitroglycerin Sl Tabs [Nitrostat] 0.4 mg SUBLINGUAL Q5M PRN #25 tab PRN Reason: Chest Pain Zinc Gluconate [Zinc] 50 mg PO DAILY Ascorbic Acid [Vitamin C] 500 mg PO DAILY Acetaminophen Tab [Tylenol Tab] 1,000 mg PO DAILY PRN PRN Reason: Pain HYDROcodone/APAP 5-325MG [[place] 5-325] 1 tab PO Q6HR PRN PRN Reason: Pain Tamsulosin HCl [Flomax] 0.4 mg PO BID Apixaban [Eliquis] 5 mg PO BID Cyclobenzaprine [Flexeril] 5 mg PO DAILY PRN PRN Reason: Pain amLODIPine [Norvasc] 5 mg PO DAILY Discharge Medication List Aspirin [Adult Low Dose Aspirin EC] 81 mg PO DAILY 09/30/18 [History] Atorvastatin Calcium [Lipitor] 40 mg PO DAILY 09/30/18 [History] Baclofen [Lioresal] 10 mg PO DAILY PRN 09/30/18 [History] valACYclovir HCL [Valtrex] 500 mg PO DAILY PRN 09/30/18 [History] Metoprolol Tartrate 25 mg PO BID 30 Days #90 tab 10/02/18 [Rx] Multivitamins, Thera [Multivitamin (formulary)] 1 tab PO DAILY 07/25/20 [History] Nitroglycerin Sl Tabs [Nitrostat] 0.4 mg SUBLINGUAL Q5M PRN #25 tab 07/31/20 [Rx] Ascorbic Acid [Vitamin C] 500 mg PO DAILY 07/28/24 [History] Tamsulosin HCl [Flomax] 0.4 mg PO BID 07/28/24 [History] Zinc Gluconate [Zinc] 50 mg PO DAILY 07/28/24 [History] Apixaban [Eliquis] 5 mg PO BID 07/29/24 [History] Acetaminophen Tab [Tylenol Tab] 1,000 mg PO DAILY PRN 08/24/24 [History] Cyclobenzaprine [Flexeril] 5 mg PO DAILY PRN 08/24/24 [History] HYDROcodone/APAP 5-325MG [[place] 5-325] 1 tab PO Q6HR PRN 01/18/25 [History] amLODIPine [Norvasc] 5 mg PO DAILY 01/18/25 [History] Cyclobenzaprine [Flexeril] 5 mg PO TID #21 tablet 01/27/25 [Rx] HYDROcodone/APAP 10-325MG [[place] 10-325] 1 tab PO Q6HR PRN #28 tab 01/27/25 [Rx] Sennosides/Docusate Sodium [Senna Plus 8.6-50 mg Softgel] 1 each PO DAILY #20 capsule 01/27/25 [Rx] cefaDROXiL [Duricef] 500 mg PO Q12HR 5 Days #10 cap 01/27/25 [Rx] Follow up Appointment(s)/Referral(s): Jean Alvarez DO [Doctor of Osteopathic Medicine] - 02/08/25 3:30 pm [facility] Visiting Nurse, [NON-STAFF] - 1 Week Activity/Diet/Wound Care/Special Instructions: Spine Discharge and Recovery Instructions Date of Surgery: 01/23/2025 Diagnosis: L2-S1 SEVERE SPONDYLOSIS WITH SEVER STENOSIS; NEUROGENIC CLAUDICATION; LLE RADI CULOPATHY WITH WEAKNESS; LOW BACK PAIN; 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 Please discuss prescription refills at your follow up appointment. Do not call the hospital for medication refills. Dressing: Leave your dressing in place for a total of 5 days post operatively. Then you may remove your dressing and leave open to air. Keep the area clean and if not able to keep area clean, then cover with sterile gauze and tape. Showering: You may shower 3 days after your procedure allowing soap and water to run over incision. Do not scrub. Do not soak. Blot dry. Follow up: Please confirm a follow up appointment with your surgeon 3 weeks post operatively. Please make an appointment to follow up with your PCP in 1-2 weeks after surgery for evaluation '3 phase, 3-week plan' POST OP WEEKS 1-3 1. Lifting/carrying/pushing/pulling limited to less than 5 pounds. 2. Do not sit for longer than 15 minutes at one time. Get up and walk around. Prolonged sitting is NOT advised. If you lay down, see if you can tolerate laying down on you front (belly side) 3. Walk for periods of 15 minutes = 1 mile but no longer; do it multiple times times each day. 4. Ice your low back after activity. POST OP WEEKS 3-6 1. Lifting limited to less than 20 pounds. 2. Do not sit for longer than 30 minutes at a time. Frequently change positions. Use a sit-to stand workstation or take frequent breaks from sitting if you have returned to work. 3. Walk for 30 minutes each day. If possible, do these three or more times a day POST OP WEEKS 6+ At your 6-week appointment we will give you a physical therapy referral to focus on a core stabilization and strengthening program. You should also work on leg & buttock strengthening, hamstring & quadriceps stretching, and continue a low impact aerobic activity program such as swimming, walking, or riding a stationary bicycle. During the initial 6 weeks after your surgery, you are at the highest risk of re-injuring your spine. You should generally avoid BLT's (bending, lifting and twisting combination motions) and follow the above guidelines to reduce the chance of reinjury. You can anticipate post op appointments in our office at approximately 3 weeks and 6 weeks after your surgery. INCISION CARE: If your incision is not draining you do NOT need to cover it with a dressing. Keep your incision clean, dry and intact. In most cases, we apply skin glue, karmen or sutures to the incision at the time of surgery. This will be like a crust or have the appearance of a scab and will fall off in time on its own. The stitches or karmen need to be removed at 3 weeks post op appointment. You may begin to shower 3 days after surgery (this allows the glue to lópez well). However, please avoid scrubbing the incision site or peeling off any of the skin glue. This will ensure optimal healing of your incision. Also, during this time avoid soaking the incision area in water - this includes swimming pools, hot tubs or baths. No ointments, lotions or oils on the incision until your surgeon allows. Leave karmen, sutures or glue in place. Neurological dysfunction that comes on suddenly can also be a sign of a stroke. Below some common symptoms of a stroke are listed: B - balance difficulty such as sudden onset walking or leaning to one side - NEW E - eye problem such as sudden double vision or trouble seeing on one side - NEW F - Facial weakness or numbness on one side - NEW A - Arm or leg weakness or numbness on one side - NEW S - Slurred speech or difficulty with word finding - NEW T - Time is BRAIN! Call 911 as soon as you recognize these symptoms Diet: Consume a regular diet rich in vegetables and lean protein such as chicken or fish. You should consume in a ratio of approximately 20% fats|40% carbohydrates|40%protein. Vegetables, sweet potatoes, brown rice or quinoa are examples of good carbohydrates. Chips, white bread, cookies and sweets/sugar are examples of bad carbohydrates. Limit your bad carbs, go wild with good carbs. "Life's Simple 7" Guidelines as per [employer] [employer] These will help you reclaim your life after surgery and press worker helper in your recovery, keeping in mind your restrictions. (1) Get Active. Physical activity can help people lose weight, control high blood pressure and cholesterol, feel emotionally better, and sleep better. (2) Control Cholesterol. Avoid a diet high in saturated fat, trans fat, & cholesterol. Limit whole milk & cream, ice cream, butter, egg yolks, processed meats (like sausage and hot dogs), and fatty meats. Choose healthy foods that are low in saturated fat, trans fat and cholesterol which include: Fruits and vegetables, fiber rich grain products (like whole grain pasta and brown rice), lean meat such as chicken, fish, nuts, seeds, and legumes. (3) Eat Better. Eat small portions. Shop at the grocery with a list and do not stray from it. Tips for a healthy diet include: Limit sodium intake to less than 1500mg daily, avoid prepackaged, processed, and fast foods, choose a diet rich in fruits, vegetables, and whole grain, high fiber foods, and limit saturated & cholesterol in your diet. (4) Manage Blood Pressure. If you have high blood pressure, you should have a cuff at home so that you can check your blood pressure regularly. Be sure you have a good cuff. An arm one is generally better than a wrist one. Bring the cuff to a doctor's appointment to validate that the measurements that your cuff are taking are accurate. Take your blood pressure twice daily when you are sitting down and relaxing. Record the numbers in a log and bring this log with you to your doctors' appointments. (5) Lose Weight if your BMI is above 25. A healthy BMI is between 19-25. To calculate Your BMI, you may use a Standard BMI Calculator on the NIH BMI website: <www.nhlbi.nih.gov/guidelines/obesity/BMI/bmicalc.htm>. Weigh oneself daily. If you are overweight, set a goal to lose weight. A pound a week loss if needed is a good target. (6) Reduce Blood Sugar. Limit foods and liquids with "added sugars." (Added sugars include sucrose, fructose, glucose, maltose, dextrose, high fructose corn syrup, corn syrup, concentrated fruit juice and honey). (7) Stop Smoking. If you smoke, quitting smoking is one of the best things that you can do for your health. Smoking increases your risk of heart attack, stroke, and peripheral vascular disease, which is a build-up of plaque in your arteries. Please discard all the cigarettes and lighters in your house. Have a plan for what you will do when you have the urge to smoke. Direct and second- hand smoke shortens your life as well as the lives of your family, friends and others around you. For your health and the health of those around you, please consider quitting! Proper Bending Body Mechanics: Maintain a wide stance with one foot slightly in front of the other. Keep your back straight. Bend utilizing the strength in your hips and knees. Do not bend at the waist. Maintain the lifted object at your waist-level close to your body. Avoid lifting weight that causes immediately pain or pain anywhere in the body afterwards. Smoking/Nicotine If there was ever one thing that you could do to increase your overall health, decrease your risk of cardiovascular problems by about 39% the second you make the choice, it is to STOP SMOKING. Your body's most instant gratification is the second you stop smoking. We have all heard the studies, read the articles but it is true, smoking is extremely bad for your overall health, and moreover it is detrimental to your bone health. Nicotine, IN ANY FORM, kills bone cells, prevents your body from healing fractures, and significantly prolongs healing after surgery. In spine surgery specifically, it increases your risk of not healing your bones to create a fusion and increases your risk of having a revision surgery due to this up to 60%. I know it is hard. I know it feels impossible. But there are ways. Take control of your life. We are here to help you through it. And when you are ready, ask us and we can direct you to help if you desire. Use the START Plan to Quit Smoking (please visit the [email or web address] website listed below for more information): S = Set a quit date. Choose a date within the next 2 weeks, so you have enough time to prepare without losing your motivation to quit. If you mainly smoke at work, quit on the weekend, so you have a few days to adjust to the change. T = Tell family, friends, and co-workers that you plan to quit. Let your friends and family in on your plan to quit smoking and tell them you need their support and encouragement to stop. Look for a quit miryam who wants to stop smoking as well. You can help each other get through the rough times. A = Anticipate and plan for the challenges you'll face while quitting. Most people who begin smoking again do so within the first 3 months. You can help yourself make it through by preparing ahead for common challenges, such as nicotine withdrawal and cigarette cravings. R = Remove cigarettes and other tobacco products from your home, car, and work. Throw away all your cigarettes (no emergency pack!), lighters, ashtrays, and matches. Wash your clothes and freshen up anything that smells like smoke. Shampoo your car, clean your drapes and carpet, and steam your furniture. T = Talk to your doctor about getting help to quit. Your doctor can prescribe medication to help with withdrawal and suggest other alternatives. If you can't see a doctor, you can get many products over the counter at your local pharmacy or grocery store, including the nicotine patch, nicotine lozenges, and nicotine gum. Resources for Quitting Smoking: <https://www.[place].gov/documents/[facility]/Quit_Tobacco_Resources_for_patients_313 480_7.pdf> Supplementation: Take recommended dosages of Vitamin D and Calcium to help fortify your bones and help them to heal. See your health maintenance packet for dosages and recommended levels. DVT/VTE prophylaxis: You will be given compression stockings from the hospital. Wear these daily for the first two weeks after surgery. You may take them off at night. You may be prescribed a medication to help thin your blood. Take this as directed. If you are not prescribed this medication, early and frequent ambulation has been shown to be the best prophylaxis to deep vein thrombosis and sequelae related to this event. Discharge Disposition: HOME SELF-CARE
--- NOTE | 2025-01-27 11:48 | P.PN ---
Subjective Progress Note Date: 01/27/25 Principal diagnosis: 1.L2-S1 SEVERE SPONDYLOSIS WITH SEVER STENOSIS 2.NEUROGENIC CLAUDICATION 3.LLE RADICULOPATHY WITH WEAKNESS 4. LOW BACK PAIN 5. 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 Patient says he did work with therapy this morning and got up and walked around the room and into the hallway. Patient says he is using walker to aid in ambulation. Patient says he has urinated since Shah was removed. Patient denies any urinary issues at this time. Patient says he is looking forward to going home. Patient denies any other issues at this time. Objective - Vital Signs Vital signs: Vital Signs Temp 98.6 F 01/27/25 07:10 Pulse 74 01/27/25 07:10 Resp 16 01/27/25 07:10 BP 132/55 01/27/25 07:10 Pulse Ox 99 01/27/25 07:10 FiO2 Intake & Output 01/26/25 01/27/25 01/27/25 18:59 06:59 18:59 Output Total 90 Balance -90 Output: Drainage 90 Back 90 Other: Voiding Method Toilet Urinal # Voids 5 1 2 - Exam Postop dressing present with some spotting. Dressing was taken down. Drain is removed. New dressing placed over drain incision and new dressing placed over main incision. [place] well aligned and intact. Incision appears to be healing well. Negative for any active drainage. Sensation is somewhat diminished from L2-S1 dermatomes. There is some generalized tenderness to palpation over the lumbar spine near incision. Nontender on rest of exam. Patient does have soome limited range of motion in the bilateral hips secondary referred pain and stiffness in the low back. Good range of motion throughout rest of extremities on exam. 5/5 in all major motor groups in bilateral upper extremities. 4/5 in bilateral ankles and dorsi/plantarflexion and EHL/FHL. Radial pulse intact, 2+ bilaterally. Cap refill under 3 seconds in digits of upper extremities. Negative [place] bilaterally. Negative clonus bilaterally. Negative Antonella b ilaterally. - Labs CBC & Chem 7: 01/27/25 06:21 01/27/25 06:21 Labs: Abnormal Lab Results - Last 24 Hours (Table) 01/27/25 01/27/25 Range/Units 06:21 06:21 RBC 2.79 L (4.40-5.60) X 10*6/uL Hgb 9.1 L (13.0-17.0) g/dL Hct 26.3 L (39.6-50.0) % MCH 32.6 H (27.0-32.0) pg Lymphocytes # 0.69 L (0.90-5.00) X 10*3/uL Sodium 129 L (135-145) mmol/L Chloride 94 L (96-109) mmol/L BUN/Creatinine Ratio 10.11 L (12.00-20.00) Ratio Glucose 120 H (70-110) mg/dL Calcium 8.3 L (8.7-10.3) mg/dL Total Bilirubin 1.6 H (0.3-1.2) mg/dL AST 41 H (14-35) U/L Total Protein 4.9 L (6.2-8.2) g/dL Albumin 3.3 L (3.8-4.9) g/dL Assessment and Plan Assessment: 1.L2-S1 SEVERE SPONDYLOSIS WITH SEVER STENOSIS 2.NEUROGENIC CLAUDICATION 3.LLE RADICULOPATHY WITH WEAKNESS 4. LOW BACK PAIN 5. 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 Patient stable at bedside this morning with postop dressing in place over lumbar spine and drain in place. Dressing changed at bedside this morning. Drain removed at bedside. Incision is clean, dry, intact. Pain medication as needed. Weightbearing as tolerated with walker and assistance as necessary. Discharge home today 2. Appreciate medical management 3. Pain management -[place]; Flexeril 4. DVT prophylaxis - aspirin 5. GI prophylaxis -Milk of magnesia; senna 6. PT/OT -weightbearing as tolerated with walker and assistance as needed 7. Encourage incentive spirometer use 8. Discharge planning -discharge home today Time with Patient: Less than 30
--- NOTE | 2025-01-27 14:41 | P.PN ---
Subjective Progress Note Date: 01/27/25 HISTORY OF PRESENT ILLNESS: This is a 79-year-old male with a previous medical history significant for hypertension and hypertensive cardiovascular disease, mixed hyperlipidemia, history of osteoarthritis, spondylosis of the cervical spine without myelopathy and arthropathy and spondylosis of the lumbar spine with radiculopathy to the left lower extremity as well as weakness of the left lower extremity enlarged prostate with lower urinary tract symptoms, paroxysmal atrial fibrillation statu s post permanent pacemaker placement has been under the care of cardiology Dr. Waddell, patient underwent L2 to pelvis decompression with fusion that was done by Dr. Alvarez today patient was seen in his room and his niece was at the bedside, patient was sitting up in bed in no apparent distress, he continues to have drain in place, with serosanguineous material coming out, he denies any chest pain at the time of evaluation, he has no shortness of breath, he is utilizing incentive spirometer correctly, he has no abdominal pain, nausea or vomiting, he denies any numbness around the groin area, he denies any shooting pain down the legs, he has no significant weakness except for dorsiflexion of the left big toe, patient appears to be stable at this point in time, he was started back on his medication, I held off aspirin and Eliquis until after discussing with spine surgery when we can start this medication hopefully in the next 24 hours. 01/24: Patient is having more pain at this point in time, he denies any chest pain, shortness of breath, he is using incentive spirometer, but he is rating his pain as a 5 out of 10 intensity at this time, he has been getting Dilaudid as well as hydrocodone, patient is moving his upper extremities and lower extremities, he continues to have the drain in place, draining serosanguineous material, patient will be seen in follow-up with physical therapy and Occupational Therapy, spine surgeon to follow-up with the patient, will discuss with the spine surgery whether or not the patient is able to be started back on his Eliquis hopefully in the next 24 hours. 01/25: Patient is sitting up in bed he continues to be in significant amount of pain, significant output from the drain, he had a CT scan of the lumbar spine that showed good alignment, we will continue to monitor the patient very closely, Shah catheter was removed, increase activity, continue current pain management, continue to hold off anticoagulation as the patient does have si gnificant amount of bleeding out of the drain, hold off aspirin as well, will follow-up with the patient over the next 24 hours . 01/26: Patient appears in the better spirits today he is sitting up in bed in no apparent distress, his pain is well-controlled today, his Shah catheter is out, he is able to void, he continues to have some bloody material coming out of the drain, better than yesterday, we will hold off Eliquis until the drain is out, likely home in the next 24 hours, continue aspirin 81 mg once every day, continue to increase activity level, patient is making good progress so far, no bowel movement yet, continue current treatment plan. 01/27: Patient sitting up in bed in no apparent distress, he continues to have some weakness in the left thigh, he is using a walker for ambulation, his drain was removed, he will be started back on Eliquis 5 mg orally twice every day starting from [facility], he denies any chest pain at this time, no shortness of breath at this time he has no palpitation, he has no numbness except for minimal weakness in the left thigh, he has not had a bowel movement, he has been getting stool softener as well as MiraLAX on a daily basis, will follow-up with the patient very closely, patient can be discharged home if okay with orthopedic spine surgery follow-up with me as an outpatient in about 1 week. REVIEW OF SYSTEMS: Constitutional: No documented fever, no chills, no night sweats. No weight change. No weakness, fatigue or lethargy. No daytime sleepiness. EENT: No headache. No blurred vision or double vision, no loss of vision. No loss of Hearing, no ringing in the ears, no dizziness. No nasal drainage or congestion. No epistaxis. No sore throat. Lungs: No shortness of breath, no cough, no sputum production. No wheezing. Reports dyspnea with activity. Cardiovascular: No chest pain, no lower extremity edema. No palpitations. No paroxysmal nocturnal dyspnea. No orthopnea. No lightheadedness or dizziness. No syncopal episodes. Abdominal: Reports no abdominal pain. No nausea, vomiting. No diarrhea. No constipation. No bloody or tarry stools reports no loss of appetite. Genitourinary: No dysuria, increased frequency, urgency. No urinary retention. Musculoskeletal: No myalgias. No muscle weakness, no gait dysfunction, no frequent falls. positive for back pain. No neck pain. Integumentary: wound with dressing and wound drain , no lesions. No rash or pruritus. No unusual bruising. No change in hair or nails. Neurologic: No aphasia. No facial droop. No change in mentation. No head injury. No headache. No paralysis. No paresthesia. Psychiatric: No depression. No anxiety. No mood swings. Endocrine: No abnormal blood sugars. No weight change. PHYSICAL EXAMINATION: General: 79-year-old male sitting up in bed in no apparent distress HEENT: Head is atraumatic, normocephalic, pupils were equal round reactive to light and recommendation, extraocular muscle movement were intact, sclera no nicteric, conjunctivae were pale, mucous membranes of the mouth are somewhat dry. Neck: Supple, no JVP, normal carotid upstroke bilaterally, no lymphadenopathy. Chest: Decreased breath sounds at the bases, few rhonchi, no expiratory wheezes, no chest wall tenderness, no intercostal retractions. Heart: First heart sound is normal, second heart sounds normal there is systolic ejection murmur 2/6 located in the left sternal border. Abdomen: Soft, nontender, nondistended, positive bowel sounds. Extremities: There is no edema no calf tenderness DP +2 bilaterally. Neurologic examination: Patient is awake alert and oriented x3, cranial nerves II-12 appear grossly intact, muscle power were 5 out of 5 in upper extremities and 5 out of 5 in bilateral lower extremities, deep tendon reflexes normal b ilaterally. ASSESSMENT AND PLAN: 1. Postoperative day # 4 status post L2 to pelvis decompression with fusion. Patient was instructed to use incentive spirometer to reduce the incidence of atelectasis and healthcare associated pneumonia, continue current pain management as outlined by spine surgery, physical therapy evaluation tomorrow morning, patient does appear to have a drain in the back. Follow-up with the patient very closely, please restart Eliquis 5 mg orally twice every day 2. Hypertension and hypertensive cardiovascular disease. Continue patient on metoprolol 25 mg orally twice every day as well as amlodipine 5 mg once every day, monitor the patient blood pressure very closely. 3. Mixed hyperlipidemia. Continue patient on atorvastatin 40 mg orally once every day, monitor the patient lipid panel, keep LDL 55-70. 4. History of coronary artery disease status post left heart catheterization that showed mild CAD in 2023. Hold off aspirin for now, continue metoprolol 25 mg orally twice every day, continue atorvastatin 40 mg once every day, patient was seen prior to his surgery by Dr. Waddell. 5. History of atrial fibrillation status post permanent pacemaker placement continue patient on metoprolol 25 mg orally twice every day hold Eliquis for now. 6. Diabetes mellitus type 2 currently not take any medication, his hemoglobin A1c was 6%, patient has been on diet only. 7. Enlarged prostate monitor for urinary retention. Shah catheter was removed. 8. 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 9. DVT prophylaxis. Early ambulation. Continue bilateral knee-high LEXII hose as well as SCDs. please restart Eliquis 5 mg orally twice every day. 10. GI prophylaxis. Continue patient on Protonix 40 mg orally once every day. 11. medically stable to be discharged home today. Objective - Vital Signs Vital signs: Vital Signs Temp 98.6 F 01/27/25 07:10 Pulse 74 01/27/25 07:10 Resp 16 01/27/25 07:10 BP 132/55 01/27/25 07:10 Pulse Ox 99 01/27/25 07:10 FiO2 Intake & Output 01/26/25 01/27/25 01/27/25 18:59 06:59 18:59 Output Total 90 Balance -90 Output: Drainage 90 Back 90 Other: Voiding Method Toilet Urinal # Voids 5 1 2 - Labs CBC & Chem 7: 01/27/25 06:21 01/27/25 06:21 Labs: Abnormal Lab Results - Last 24 Hours (Table) 01/27/25 01/27/25 Range/Units 06:21 06:21 RBC 2.79 L (4.40-5.60) X 10*6/uL Hgb 9.1 L (13.0-17.0) g/dL Hct 26.3 L (39.6-50.0) % MCH 32.6 H (27.0-32.0) pg Lymphocytes # 0.69 L (0.90-5.00) X 10*3/uL Sodium 129 L (135-145) mmol/L Chloride 94 L (96-109) mmol/L BUN/Creatinine Ratio 10.11 L (12.00-20.00) Ratio Glucose 120 H (70-110) mg/dL Calcium 8.3 L (8.7-10.3) mg/dL Total Bilirubin 1.6 H (0.3-1.2) mg/dL AST 41 H (14-35) U/L Total Protein 4.9 L (6.2-8.2) g/dL Albumin 3.3 L (3.8-4.9) g/dL
[2025-01-27 14:56] VITALS: BP 116/52; PULSE 77; TEMP 98.9
== END 2025-01-27 16:29 | disposition home or self-care (01) | DRG 426 ==
LOC: ORWHC2ENDO 07:22 → 4SSUR 07:23 → OBSVTOIN 07:23 → EDSTATUS 07:30 → 4SSUR 14:49
PROVIDERS: ADMIT Orthopaedic Surgery; ATTEND Orthopaedic Surgery
PROC: 0SG1071 Fusion of 2 or more Lumbar Vertebral Joints with Autologous Tissue Substitute, Posterior Approach, Posterior Column, Open Approach (ICD-10-PCS; 2025-01-23)
PROC: 0SG30AJ Fusion of Lumbosacral Joint with Interbody Fusion Device, Posterior Approach, Anterior Column, Open Approach (ICD-10-PCS; 2025-01-23)
PROC: 0SG3071 Fusion of Lumbosacral Joint with Autologous Tissue Substitute, Posterior Approach, Posterior Column, Open Approach (ICD-10-PCS; 2025-01-23)
PROC: 01NB0ZZ Release Lumbar Nerve, Open Approach (ICD-10-PCS; 2025-01-23)
PROC: 01NR0ZZ Release Sacral Nerve, Open Approach (ICD-10-PCS; 2025-01-23)
PROC: 00NY0ZZ Release Lumbar Spinal Cord, Open Approach (ICD-10-PCS; 2025-01-23)
PROC: 0SH804Z Insertion of Internal Fixation Device into Left Sacroiliac Joint, Open Approach (ICD-10-PCS; 2025-01-23)
PROC: 0SH704Z Insertion of Internal Fixation Device into Right Sacroiliac Joint, Open Approach (ICD-10-PCS; 2025-01-23)
PROC: 8E0WXBF Computer Assisted Procedure of Trunk Region, With Fluoroscopy (ICD-10-PCS; 2025-01-23)
PROC: 4A11X4G Monitoring of Peripheral Nervous Electrical Activity, Intraoperative, External Approach (ICD-10-PCS; 2025-01-23)
PROC: 4A133B1 Monitoring of Arterial Pressure, Peripheral, Percutaneous Approach (ICD-10-PCS; 2025-01-23)
PROC: 4A133J1 Monitoring of Arterial Pulse, Peripheral, Percutaneous Approach (ICD-10-PCS; 2025-01-23)
PROC: 03HY32Z Insertion of Monitoring Device into Upper Artery, Percutaneous Approach (ICD-10-PCS; 2025-01-23)
PROC: 0SG10AJ Fusion of 2 or more Lumbar Vertebral Joints with Interbody Fusion Device, Posterior Approach, Anterior Column, Open Approach (ICD-10-PCS; principal; 2025-01-23 09:15)
DX: M47.26 Other spondylosis with radiculopathy, lumbar region (principal); J18.9 Pneumonia, unspecified organism; D62 Acute posthemorrhagic anemia; E11.9 Type 2 diabetes mellitus without complications; M48.56XA Collapsed vertebra, not elsewhere classified, lumbar region, initial encounter for fracture; J98.11 Atelectasis; I48.0 Paroxysmal atrial fibrillation; M48.062 Spinal stenosis, lumbar region with neurogenic claudication; M43.16 Spondylolisthesis, lumbar region; E78.2 Mixed hyperlipidemia; F17.210 Nicotine dependence, cigarettes, uncomplicated; I25.10 Atherosclerotic heart disease of native coronary artery without angina pectoris; I45.5 Other specified heart block; N40.0 Benign prostatic hyperplasia without lower urinary tract symptoms; M19.90 Unspecified osteoarthritis, unspecified site; Z79.01 Long term (current) use of anticoagulants; Z79.82 Long term (current) use of aspirin; M53.2X6 Spinal instabilities, lumbar region; Z79.899 Other long term (current) drug therapy; Z82.49 Family history of ischemic heart disease and other diseases of the circulatory system; Z85.828 Personal history of other malignant neoplasm of skin; Z95.0 Presence of cardiac pacemaker; Y95 Nosocomial condition
CPT/HCPCS: 72100; 72131; 80048; 80053; 85025; 85027

== ENCOUNTER → 2025-02-22 | Outpatient (CLI) | payer MEDICARE ==
[2025-02-22 14:59] LABS: Basophils # (A) 0.02 X 10*3/uL (0.00-0.10); Basophils % (A) 0.2 %; Eosinophils % (A) 1.2 %; HCT 36.8 % (39.6-50.0); HGB 12.3 g/dL (13.0-17.0); Lymphocytes # (A) 0.81 X 10*3/uL (0.90-5.00); Lymphocytes % (A) 9.9 %; MCH 29.6 pg (27.0-32.0); MCHC 33.4 g/dL (32.0-37.0); MCV 88.5 FL (80.0-97.0); Mean Platelet Volume 9.1 FL (9.5-12.2); Monocytes # (A) 0.73 X 10*3/uL (0.20-1.00); Monocytes % (A) 8.9 %; NRBC Per 100 WBC 0 X 10*3/uL (0.00-0.01); Neutrophils # (A) 6.52 X 10*3/uL (1.80-7.70); Neutrophils % (A) 79.3 %; Platelet Count 369 X 10*3/uL (140-440); RBC 4.16 X 10*6/uL (4.40-5.60); RDW 13.2 % (11.5-14.5); WBC 8.22 X 10*3/uL (4.50-10.00)
[2025-02-22 15:37] LABS: NT-Pro-B-Type Natriuretic Pept 1291 pg/mL (0-450)
[2025-02-22 15:57] LABS: ALT 45 U/L (10-49); AST 38 U/L (14-35); Albumin 4.1 g/dL (3.8-4.9); Albumin/Globulin Ratio 1.95 Ratio (1.60-3.17); Alkaline Phosphatase 134 U/L (41-126); BUN/Creat Ratio 20.62 Ratio (12.00-20.00); Blood Urea Nitrogen 16.5 mg/dL (9.0-27.0); Calcium 9.5 mg/dL (8.7-10.3); Carbon Dioxide 20.7 mmol/L (21.6-31.8); Chloride 90 mmol/L (96-109); Globulin 2.1 g/dL (1.6-3.3); Glucose 105 mg/dL (70-110); Potassium 5.1 mmol/L (3.5-5.5); Sodium 123 mmol/L (135-145); Total Bilirubin 1.3 mg/dL (0.3-1.2); Total Protein 6.2 g/dL (6.2-8.2); Uric Acid 2.7 mg/dL (3.7-8.7)
== END | disposition home or self-care (01) ==
LOC: LABWHC1 09:23
PROVIDERS: ATTEND Internal Medicine
DX: I10 Essential (primary) hypertension (principal); I48.0 Paroxysmal atrial fibrillation; E11.9 Type 2 diabetes mellitus without complications; E87.1 Hypo-osmolality and hyponatremia
CPT/HCPCS: 36415; 80053; 82533; 83036; 83735; 83880; 83930; 83935; 84300; 84443; 84550; 85025